=== PATIENT | female | born 1950 ===

== ENCOUNTER 2018-06-06 18:29 | Inpatient (IN) | payer MEDICARE ==
[2018-06-06] MEDS ORDERED: Sodium Chloride 0.9% 1,000 ML IV STA (20:03)
[2018-06-06 21:18] LABS: BASO % 0.3 % (0.0-2.0); EOS % 0.1 % (0.0-4.0); LYMPH # 1.9 K/uL (1.0-4.3); LYMPH % 13.2 % (20.0-40.0); MEAN CELL VOLUME 87.2 fl (81.0-99.0); MEAN CORPUSCULAR HEMOGLOBIN 28.6 pg (27.0-31.0); MEAN CORPUSCULAR HGB CONC 32.8 g/dL (33.0-37.0); MEAN PLATELET VOLUME 7.9 fl (7.2-11.7); MONO # 0.7 K/uL (0.0-0.8); MONO % 5.2 % (0.0-10.0); NEUT # 11.5 K/uL (1.8-7.0); NEUT % 81.2 % (50.0-75.0); NRBC % 0.1 % (0.0-0.0); RBC 3.85 Mil/uL (3.80-5.20); RED CELL DISTRIBUTION WIDTH 13.5 % (11.5-14.5); WHITE BLOOD COUNT 14.1 K/uL (4.8-10.8)
[2018-06-06 21:25] LABS: ALB/GLOB RATIO 1.4 (1.0-2.1); ALT/SGPT 24 U/L (9-52); AST/SGOT 146 U/L (14-36); BLOOD UREA NITROGEN 29 mg/dl (7-17); CALCIUM 10.1 mg/dL (8.4-10.2); GFR NON-AFRICAN AMERICAN > 60
[2018-06-06 21:26] LABS: SQUAMOUS EPITHIAL 4 /hpf (0-5); URINE BILIRUBIN NEGATIVE (NEGATIVE); URINE BLOOD NEGATIVE (NEGATIVE); URINE CLARITY SLIGHTY-CLOUDY (Clear); URINE COLOR YELLOW (YELLOW); URINE GLUCOSE (UA) NEG (NEGATIVE); URINE LEUKOCYTE ESTERASE SMALL Leu/uL (Negative); URINE PROTEIN 100 mg/dL (NEGATIVE); URINE UROBILINOGEN 0.2-1.0 mg/dL (0.2-1.0)
--- NOTE | 2018-06-06 21:36 | ED PDOC ---
HPI: Trauma/Fall - HPI Time Seen by Provider: 06/06/18 19:40 Chief Complaint (Nursing): Weakness/Neurological Deficit Chief Complaint (Provider): Weakness/Neurological Deficit History Per: Patient History/Exam Limitations: no limitations Onset/Duration Of Symptoms: Days (x 1) Injury Occurred (Timing): Today @ (03:00) Additional Complaint(s): 68 year old female with a history of HTN and diabetes presents to the ED for evaluation of weakness throughout the day and 2 episodes of vomiting. Patient reports she awoke at 03:00 this morning and fell due to weakness. She denies losing consciousness or hitting her head. Patient states that she is unable to tolerate any food or liquid. Denies fever and recent illness. PMD: Dr. Anup [place] Past Medical History Reviewed: Historical Data, Nursing Documentation, Vital Signs Vital Signs: Last Vital Signs Temp 97.9 F 06/06/18 18:48 Pulse 63 06/06/18 18:48 Resp 16 06/06/18 18:48 BP 114/42 L 06/06/18 18:48 Pulse Ox 100 06/06/18 18:48 - Medical History PMH: Diabetes, HTN - Surgical History Surgical History: No Surg Hx - Family History Family History: States: Unknown Family Hx - Immunization History Hx Tetanus Toxoid Vaccination: No Hx Influenza Vaccination: No Hx Pneumococcal Vaccination: No - Home Medications Home Medications: Ambulatory Orders Medication Instructions Recorded Carvedilol [Coreg] 6.25 mg PO BID 03/25/18 Glimepiride [amaRYL] 2 mg PO DAILY 03/25/18 Losartan/Hydrochlorothiazide 1 each PO DAILY 03/25/18 [Losartan-Hctz 100-25 mg Tab] MetFORMIN [glucOPHAGE] 1,000 mg PO BID 03/25/18 Pravastatin Sodium [Pravachol] 20 mg PO DAILY 03/25/18 amLODIPine [Norvasc] 5 mg PO DAILY 03/25/18 - Allergies Allergies/Adverse Reactions: Allergies Allergy/AdvReac Type Severity Reaction Status Date / Time No Known Allergies Allergy Verified 06/06/18 18:48 Review of Systems ROS Statement: Except As Marked, All Systems Reviewed And Found Negative Constitutional: Positive for: Weakness. Negative for: Fever, Chills Gastrointestinal: Positive for: Vomiting (2 episodes) Physical Exam - Reviewed Nursing Documentation Reviewed: Yes Vital Signs Reviewed: Yes - Physical Exam Appears: Positive for: No Acute Distress (appears lethargic) Head Exam: Positive for: ATRAUMATIC, NORMAL INSPECTION, NORMOCEPHALIC Skin: Positive for: Normal Color, Warm, Dry Eye Exam: Positive for: EOMI, Normal appearance, PERRL Neck: Positive for: Normal, Painless ROM, Supple Cardiovascular/Chest: Positive for: Regular Rate, Rhythm. Negative for: Murmur Respiratory: Positive for: Normal Breath Sounds. Negative for: Respiratory Distress Gastrointestinal/Abdominal: Positive for: Normal Exam, Soft. Negative for: Tenderness Back: Positive for: Normal Inspection. Negative for: L CVA Tenderness, R CVA Tenderness Extremity: Positive for: Normal ROM. Negative for: Deformity Neurological/Psych: Positive for: Awake, Alert, Normal Tone - Laboratory Results Result Diagrams: 06/07/18 03:50 06/07/18 03:50 Lab Results: Total Bilirubin 0.7 mg/dl (0.2-1.3) 06/06/18 21:02 AST 146 U/L (14-36) H D 06/06/18 21:02 ALT 24 U/L (9-52) 06/06/18 21:02 Alkaline Phosphatase 48 U/L (38-126) 06/06/18 21:02 Total Protein 6.9 G/DL (6.3-8.2) 06/06/18 21:02 Albumin 4.0 g/dL (3.5-5.0) 06/06/18 21:02 Globulin 2.9 gm/dL (2.2-3.9) 06/06/18 21:02 Albumin/Globulin Ratio 1.4 (1.0-2.1) 06/06/18 21:02 - ECG O2 Sat by Pulse Oximetry: 100 (RA) Pulse Ox Interpretation: Normal - Critical Care Total Time (In Min): 60 Medical Decision Making Medical Decision Makin:03 MDM: workup for generalized weakness Labs, CXR, IV fluids, CTs Reassess 21:50 Patient has a troponin of 14, EKG is showing small ST elevations at II, II and AVF. Code Heart activated. Discussion with patient and daughter: patient continues to deny chest pain and is still complaining of weakness. 21:[address] Celeste. Based on onset of symptoms at 3 am which is 19 hours ago, patient is out of window for catheterization. She will be admitted to ICU and started on IV heparin, aspirin and Plavix Scribe Attestation: Documented by Ashly Holcomb, acting as a scribe for Denita Blankenship MD. Provider Scribe Attestation: All medical record entries made by the Scribe were at my direction and personally dictated by me. I have reviewed the chart and agree that the record accurately reflects my personal performance of the history, physical exam, medical decision making, and the department course for this patient. I have also personally directed, reviewed, and agree with the discharge instructions and disposition. Disposition - Clinical Impression Clinical Impression: Acute weakness, STEMI (ST elevation myocardial infarction) - Disposition Disposition Time: 21:56 Condition: CRITICAL
[2018-06-06 21:44] LABS: VENOUS BLOOD GAS BASE EXCESS 5.2 mmol/L (0.0-2.0); VENOUS BLOOD GAS PCO2 43 mmHg (40-60); VENOUS BLOOD GAS PO2 29 mm/Hg (30-55); VENOUS BLOOD PH 7.45 (7.32-7.43)
[2018-06-06 22:04] VITALS: BMI 23.6
[2018-06-06] MEDS ORDERED: Heparin 25,000units in D5W 25,000 UNITS/250 ML BAG IV SCH (22:15)
[2018-06-06] MEDS ORDERED: Heparin 25,000units in D5W 25,000 UNITS/250 ML BAG IV ONE (22:22)
[2018-06-06 23:28] LABS: INR 1.1; PROTHROMBIN TIME 12.1 Seconds (9.8-13.1)
[2018-06-06 23:30] LABS: PARTIAL THROMBOPLASTIN TIME 32.1 Seconds (25.6-37.1)
--- NOTE | 2018-06-06 23:44 | CP.PCM.CON ---
History of Present Illness - History of Present Illness History of Present Illness: Reason for consult: admission to ICU HPI: 68 year old female PMH HTN, DM, HLD presents to ED for 16 hour history of moderate to severe generalized weakness, associated with disorientation. Patient states that around 3 am she woke to go to the bathroom and sustained a fall. She then had 2 episodes of NBNB emesis and malaise. Patient arrived to the ED, and denied any chest pain, dyspnea, diaphoresis. Afebrile, HR 63 BP 114/42, rr 16 100% on room air. Troponin 14.9, EKG with mild ST segment elevations in inferior leads, and CODE HEART was initiated. Case discussed with Interventional Cardiology, and patient was out of window for emergent cath. She will be admitted to ICU on Heparin gtt, asa, plavix, coreg, statin, PRN nitro, and Dr. Celeste Cardiology consult. She is currently chest pain free, HD stable and in no acute distress. ROS: per HPI all other systems reviewed and negative Past Patient History - Past Social History Smoking Status: Never Smoked - CARDIAC Hx Hypertension: Yes - ENDOCRINE/METABOLIC Hx Diabetes Mellitus Type 2: Yes - PSYCHIATRIC Hx Substance Use: No - SURGICAL HISTORY Hx Surgeries: Yes Hx Angioplasty: Yes - ANESTHESIA Hx Anesthesia: Yes Hx Anesthesia Reactions: No Meds Allergies/Adverse Reactions: Allergies Allergy/AdvReac Type Severity Reaction Status Date / Time No Known Allergies Allergy Verified 06/06/18 18:48 - Medications Medications: Current Medications Heparin Sodium/Dextrose (Heparin 25,000 Units/250ml In D5w) 25,000 units in 250 mls @ 7 mls/hr IV .Q24H REPLACED BY [facility]; Protocol Last Admin: 06/06/18 22:46 Dose: 7 mls/hr Physical Exam - Constitutional Appears: Non-toxic, No Acute Distress - Head Exam Head Exam: ATRAUMATIC, NORMOCEPHALIC - Eye Exam Eye Exam: EOMI, Normal appearance, PERRL Pupil Exam: NORMAL ACCOMODATION - ENT Exam ENT Exam: Mucous Membranes Moist, Normal Exam - Respiratory Exam Respiratory Exam: Clear to Auscultation Bilateral, NORMAL BREATHING PATTERN. absent: Wheezes - Cardiovascular Exam Cardiovascular Exam: RRR, +S1, +S2 - GI/Abdominal Exam GI & Abdominal Exam: Normal Bowel Sounds, Soft. absent: Organomegaly, Tenderness - Extremities Exam Extremities exam: Positive for: normal capillary refill, pedal pulses present - Back Exam Back exam: absent: CVA tenderness (L), CVA tenderness (R) - Neurological Exam Neurological exam: Alert, Reflexes Normal - Psychiatric Exam Psychiatric exam: Normal Affect, Normal Mood - Skin Skin Exam: Dry, Warm Results - Vital Signs Recent Vital Signs: Last Vital Signs Temp 98.3 F 06/06/18 21:59 Pulse 58 L 06/06/18 21:59 Resp 17 06/06/18 21:59 BP 128/63 06/06/18 21:59 Pulse Ox 100 06/06/18 22:13 - Labs Result Diagrams: 06/06/18 21:02 06/06/18 21:02 Labs: Laboratory Results - last 24 hr 06/06/18 06/06/18 06/06/18 19:04 21:02 21:02 WBC 14.1 H RBC 3.85 Hgb 11.0 L Hct 33.6 L MCV 87.2 MCH 28.6 MCHC 32.8 L RDW 13.5 Plt Count 235 MPV 7.9 Neut % (Auto) 81.2 H Lymph % (Auto) 13.2 L [place] % (Auto) 5.2 Eos % (Auto) 0.1 Baso % (Auto) 0.3 Neut # (Auto) 11.5 H Lymph # (Auto) 1.9 [place] # (Auto) 0.7 Eos # (Auto) 0.0 Baso # (Auto) 0.0 PT INR APTT pO2 VBG pH VBG pCO2 VBG HCO3 VBG Total CO2 VBG O2 Sat (Calc) VBG Base Excess VBG Potassium Glucose Lactate FiO2 Crit Value Called To Crit Value Called By Crit Value Read Back Blood Gas Notified Time Sodium 141 Potassium 3.9 Chloride 103 Carbon Dioxide 27 Anion Gap 15 BUN 29 H Creatinine 0.9 Est GFR ( Amer) > 60 Est GFR (Non-Af Amer) > 60 POC Glucose (mg/dL) 134 H Random Glucose 108 H Calcium 10.1 Total Bilirubin 0.7 AST 146 H D ALT 24 Alkaline Phosphatase 48 Troponin I 14.9000 H* Total Protein 6.9 Albumin 4.0 Globulin 2.9 Albumin/Globulin Ratio 1.4 Venous Blood Potassium Urine Color Urine Clarity Urine pH Ur Specific [place] Urine Protein Urine Glucose (UA) Urine Ketones Urine Blood Urine Nitrate Urine Bilirubin Urine Urobilinogen Ur Leukocyte Esterase Urine RBC (Auto) Urine Microscopic WBC Ur Squamous Epith Cells 06/06/18 06/06/18 06/06/18 21:13 21:35 21:50 WBC RBC Hgb Hct MCV MCH MCHC RDW Plt Count MPV Neut % (Auto) Lymph % (Auto) [place] % (Auto) Eos % (Auto) Baso % (Auto) Neut # (Auto) Lymph # (Auto) [place] # (Auto) Eos # (Auto) Baso # (Auto) PT 12.1 INR 1.1 APTT 32.1 pO2 29 L VBG pH 7.45 H VBG pCO2 43 VBG HCO3 27.9 VBG Total CO2 31.2 H VBG O2 Sat (Calc) 66.9 H VBG Base Excess 5.2 H VBG Potassium 3.8 Glucose 109 H Lactate 4.6 H* FiO2 21.0 Crit Value Called To Prachi barr Crit Value Called By 23 Crit Value Read Back Y Blood Gas Notified Time 2143 Sodium 141.0 Potassium Chloride 106.0 Carbon Dioxide Anion Gap BUN Creatinine Est GFR ( Amer) Est GFR (Non-Af Amer) POC Glucose (mg/dL) Random Glucose Calcium Total Bilirubin AST ALT Alkaline Phosphatase Troponin I Total Protein Albumin Globulin Albumin/Globulin Ratio Venous Blood Potassium 3.8 Urine Color Yellow Urine Clarity Slighty-cloudy Urine pH 7.0 Ur Specific [place] 1.023 Urine Protein 100 Urine Glucose (UA) Neg Urine Ketones Negative Urine Blood Negative Urine Nitrate Negative Urine Bilirubin Negative Urine Urobilinogen 0.2-1.0 Ur Leukocyte Esterase Small Urine RBC (Auto) 4 H Urine Microscopic WBC 10 H Ur Squamous Epith Cells 4 Assessment & Plan - Assessment and Plan (Free Text) Plan: 68 year old female PMH HTN, DM, HLD presents to ED for 16 hour history of moderate to severe generalized weakness, associated with disorientation. Patient states that around 3 am she woke to go to the bathroom and sustained a fall. She then had 2 episodes of NBNB emesis and malaise. Patient arrived to the ED, and denied any chest pain, dyspnea, diaphoresis. Afebrile, HR 63 BP 114/42, rr 16 100% on room air. Troponin 14.9, EKG with mild ST segment elevations in inferior leads, and CODE HEART was initiated. LA 4.6 2/2 VA.Case discussed with Interventional Cardiology, patient was out of window for emergent cath. She will be admitted to ICU on Heparin gtt, asa, plavix, coreg, statin, PRN nitro, and Dr. Celeste Cardiology consult. She is currently chest pain free, HD stable and in no acute distress. STEMI - trending enzymes, EKG in AM - repeat labs - echo ordered - currently chest pain free - heparin gtt, ASA, plavix, Coreg, Statin, PRN nitro - Dr. Celeste Interventional Cardiology - NPO for now DM - cont Glipizide and ISS HTN - cont Amlodipine, Losartan. Coreg with parameters given low 100s BP HLD - cont Pravastatin DVT ppx patient on heparin gtt
[2018-06-07 04:13] LABS: HEMOGLOBIN 10.5 g/dL (12.0-16.0); MEAN CORPUSCULAR HGB CONC 34.1 g/dL (33.0-37.0); RBC 3.62 Mil/uL (3.80-5.20); RED CELL DISTRIBUTION WIDTH 13.1 % (11.5-14.5); WHITE BLOOD COUNT 13.4 K/uL (4.8-10.8)
[2018-06-07 04:34] LABS: BLOOD UREA NITROGEN 29 mg/dl (7-17); CALCIUM 9.7 mg/dL (8.4-10.2); GFR NON-AFRICAN AMERICAN > 60; HDL CHOLESTEROL 41 MG/DL (30-70)
[2018-06-07 04:46] LABS: LDL CHOLESTEROL 75 mg/dL (0-129)
[2018-06-07] MEDS ORDERED: GlipiZIDE 5 mg SR Tab PO SCH (07:30)
[2018-06-07] MEDS ORDERED: Potassium Chloride 20 mEq ER Tab PO ONE (08:34)
--- NOTE | 2018-06-07 08:50 | CT ---
Date of service: 06/06/2018 PROCEDURE: CT HEAD WITHOUT CONTRAST. HISTORY: head trauma COMPARISON: None available. TECHNIQUE: Axial computed tomography images were obtained through the head/brain without intravenous contrast. Radiation dose: Total exam DLP = 774.25 mGy-cm. This CT exam was performed using one or more of the following dose reduction techniques: Automated exposure control, adjustment of the mA and/or kV according to patient size, and/or use of iterative reconstruction technique. FINDINGS: HEMORRHAGE: No intracranial hemorrhage. BRAIN: There are mild chronic microangiopathic changes. There are chronic lacunar infarctions in bilateral caudate head, internal capsules and left thalamus.. There is no mass, mass effect or abnormal extra-axial fluid collection. There is no territorial infarction. The midline sagittal structures are normal.There are coarse atherosclerotic calcifications in the cavernous carotid arteries. VENTRICLES: There is mild age-related global parenchymal volume loss and proportionate enlargement of the ventricles and cortical sulci. CALVARIUM: There is no calvarial fracture or extracranial soft tissue swelling. PARANASAL SINUSES: Predominantly clear. MASTOID AIR CELLS: Predominantly clear. OTHER FINDINGS: None. IMPRESSION: No acute intracranial abnormality. A preliminary report was provided by [employer].
[2018-06-07] MEDS ORDERED: Pravastatin Sodium 20 MG TAB PO SCH (09:00)
--- NOTE | 2018-06-07 09:03 | CARD ---
APPROVED REPORT Date of service: 06/06/2018 EKG Measurement Heart [id number] <Conclusion> Sinus bradycardia Left axis deviation Inferior infarct, possibly acute ACUTE PA / STEMI Consider right ventricular involvement in acute inferior infarct Abnormal ECG
--- NOTE | 2018-06-07 09:15 | CARD ---
APPROVED REPORT Date of service: 06/07/2018 EKG Measurement Heart [id number] <Conclusion> Sinus bradycardia Left axis deviation Inferior infarct, possibly acute ACUTE MT / STEMI Consider right ventricular involvement in acute inferior infarct Abnormal ECG
[2018-06-07] MEDS: Insulin Lispro (humaLOG) 100 Units/ml Inj SC SCH ×4 (10:04→22:26)
--- NOTE | 2018-06-07 10:34 | RAD ---
Date of service: 06/06/2018 HISTORY: possible admission COMPARISON: No prior. FINDINGS: LUNGS: No active pulmonary disease. PLEURA: No significant pleural effusion identified, no pneumothorax apparent. CARDIOVASCULAR: Atherosclerotic calcifications identified primarily aortic arch. No radiographic findings to suggest acute or significant cardiovascular disease. OSSEOUS STRUCTURES: No significant abnormalities. VISUALIZED UPPER ABDOMEN: Normal. OTHER FINDINGS: None. IMPRESSION: No active disease.
--- NOTE | 2018-06-07 10:35 | CP.PCM.CON ---
History of Present Illness - History of Present Illness History of Present Illness: Shahid Bell, PGY-1, Cardiology Consult Note for Dr. Celeste 68 year old female with past medical history of hypertension, hyperlipidemia, diabetes mellitus type II presents status post fall. Patient fell on the the way to the bathroom at home and hit her head. Patient denies loss of consciousness. Patient reports prior to the fall, she had not had much appetite for 2 days due to severe nausea. Patient had 2 episodes of NBNB vomiting day prior to fall and 1 episode in the emergency department. Patient's nausea has resolved at this time. Patient denies any chest pain, shortness of breath, left arm pain, jaw pain, diaphoresis at this time. 12-point ROS was unremarkable except for what was mentioned in HPI. PMD: hypertension, hyperlipidemia, diabetes mellitus type II PSH: denies Allergies: NKDA FMHx: noncontributary SHx: smoked 1 PPD for "years", denies alcohol or recreational drug use Patient had stress test 15 years ago which she reports was normal. Patient had catheterization in 1999 with no stents placed as per patient. Review of Systems - Review of Systems Review of Systems: except as mentioned in HPI Past Patient History - Past Medical History & Family History Past Medical History?: Yes - Past Social History Smoking Status: Never Smoked - CARDIAC Hx Hypertension: Yes - PULMONARY Hx Respiratory Disorders: No - NEUROLOGICAL Hx Neurological Disorder: No - HEENT Hx HEENT Problems: Yes - RENAL Hx Chronic Kidney Disease: No - ENDOCRINE/METABOLIC Hx Diabetes Mellitus Type 2: Yes - HEMATOLOGICAL/ONCOLOGICAL Hx Blood Disorders: No - INTEGUMENTARY Hx Dermatological Problems: No - MUSCULOSKELETAL/RHEUMATOLOGICAL Hx Musculoskeletal Disorders: Yes - GASTROINTESTINAL Hx Gastrointestinal Disorders: No - GENITOURINARY/GYNECOLOGICAL Hx Genitourinary Disorders: No - PSYCHIATRIC Hx Psychophysiologic Disorder: No - SURGICAL HISTORY Hx Surgeries: Yes Hx Angioplasty: Yes - ANESTHESIA Hx Anesthesia: Yes Hx Anesthesia Reactions: No Meds Allergies/Adverse Reactions: Allergies Allergy/AdvReac Type Severity Reaction Status Date / Time No Known Allergies Allergy Verified 06/06/18 18:48 - Medications Medications: Current Medications Amlodipine Besylate (Norvasc) 5 mg PO DAILY [facility] Last Admin: 06/07/18 10:05 Dose: 5 mg Aspirin (Aspirin Chewable) 81 mg PO DAILY [facility] Last Admin: 06/07/18 09:55 Dose: 81 mg Clopidogrel Bisulfate (Plavix) 75 mg PO DAILY [facility] Last Admin: 06/07/18 10:05 Dose: 75 mg Glipizide (Glucotrol Xl) 5 mg PO ACB [facility] Last Admin: 06/07/18 10:18 Dose: 5 mg Heparin Sodium/Dextrose (Heparin 25,000 Units/250ml In D5w) 25,000 units in 250 mls @ 7 mls/hr IV .Q24H [facility]; Protocol Last Titration: 06/07/18 06:15 Dose: 5 mls/hr Insulin Human Lispro (Humalog) 0 units SC ACHS [facility]; Protocol Last Admin: 06/07/18 10:04 Dose: Not Given Metoprolol Succinate (Toprol Xl) 25 mg PO DAILY [facility] Nitroglycerin (Nitrostat Sl Tab) 0.4 mg SL Q5M PRN PRN Reason: Other Ondansetron HCl (Zofran Inj) 4 mg IVP Q4 PRN PRN Reason: Nausea/Vomiting Pravastatin Sodium (Pravachol) 20 mg PO DAILY [facility] Last Admin: 06/07/18 10:05 Dose: 20 mg Physical Exam - Constitutional Appears: Well, Non-toxic, No Acute Distress - Head Exam Head Exam: ATRAUMATIC, NORMAL INSPECTION, NORMOCEPHALIC - Eye Exam Eye Exam: EOMI, PERRL - ENT Exam ENT Exam: Mucous Membranes Moist - Respiratory Exam Respiratory Exam: Clear to Auscultation Bilateral, NORMAL BREATHING PATTERN - Cardiovascular Exam Cardiovascular Exam: REGULAR RHYTHM, RRR, +S1, +S2 - GI/Abdominal Exam GI & Abdominal Exam: Normal Bowel Sounds, Soft. absent: Tenderness - Extremities Exam Extremities exam: Positive for: full ROM, normal capillary refill. Negative for: pedal edema - Neurological Exam Neurological exam: Alert, CN II-XII Intact, Oriented x3 - Skin Skin Exam: Dry, Intact, Normal Color Results - Vital Signs Recent Vital Signs: Last Vital Signs Temp 99.9 F H 06/07/18 08:00 Pulse 55 L 06/07/18 10:05 Resp 18 06/07/18 08:00 BP 122/57 L 06/07/18 10:05 Pulse Ox 95 06/07/18 08:00 - Labs Result Diagrams: 06/07/18 03:50 06/07/18 03:50 Labs: Laboratory Results - last 24 hr 06/06/18 06/06/18 06/06/18 19:04 21:02 21:02 WBC 14.1 H RBC 3.85 Hgb 11.0 L Hct 33.6 L MCV 87.2 MCH 28.6 MCHC 32.8 L RDW 13.5 Plt Count 235 MPV 7.9 Neut % (Auto) 81.2 H Lymph % (Auto) 13.2 L [place] % (Auto) 5.2 Eos % (Auto) 0.1 Baso % (Auto) 0.3 Neut # (Auto) 11.5 H Lymph # (Auto) 1.9 [place] # (Auto) 0.7 Eos # (Auto) 0.0 Baso # (Auto) 0.0 PT INR APTT pO2 VBG pH VBG pCO2 VBG HCO3 VBG Total CO2 VBG O2 Sat (Calc) VBG Base Excess VBG Potassium Glucose Lactate FiO2 Crit Value Called To Crit Value Called By Crit Value Read Back Blood Gas Notified Time Sodium 141 Potassium 3.9 Chloride 103 Carbon Dioxide 27 Anion Gap 15 BUN 29 H Creatinine 0.9 Est GFR ( Amer) > 60 Est GFR (Non-Af Amer) > 60 POC Glucose (mg/dL) 134 H Random Glucose 108 H Calcium 10.1 Phosphorus Magnesium Total Bilirubin 0.7 AST 146 H D ALT 24 Alkaline Phosphatase 48 Troponin I 14.9000 H* Total Protein 6.9 Albumin 4.0 Globulin 2.9 Albumin/Globulin Ratio 1.4 Triglycerides Cholesterol LDL Cholesterol Direct HDL Cholesterol Free T4 TSH 3rd Generation Venous Blood Potassium Urine Color Urine Clarity Urine pH Ur Specific [place] Urine Protein Urine Glucose (UA) Urine Ketones Urine Blood Urine Nitrate Urine Bilirubin Urine Urobilinogen Ur Leukocyte Esterase Urine RBC (Auto) Urine Microscopic WBC Ur Squamous Epith Cells 06/06/18 06/06/18 06/06/18 21:13 21:35 21:50 WBC RBC Hgb Hct MCV MCH MCHC RDW Plt Count MPV Neut % (Auto) Lymph % (Auto) [place] % (Auto) Eos % (Auto) Baso % (Auto) Neut # (Auto) Lymph # (Auto) [place] # (Auto) Eos # (Auto) Baso # (Auto) PT 12.1 INR 1.1 APTT 32.1 pO2 29 L VBG pH 7.45 H VBG pCO2 43 VBG HCO3 27.9 VBG Total CO2 31.2 H VBG O2 Sat (Calc) 66.9 H VBG Base Excess 5.2 H VBG Potassium 3.8 Glucose 109 H Lactate 4.6 H* FiO2 21.0 Crit Value Called To Prachi barr Crit Value Called By 23 Crit Value Read Back Y Blood Gas Notified Time 2142 Sodium 141.0 Potassium Chloride 106.0 Carbon Dioxide Anion Gap BUN Creatinine Est GFR ( Amer) Est GFR (Non-Af Amer) POC Glucose (mg/dL) Random Glucose Calcium Phosphorus Magnesium Total Bilirubin AST ALT Alkaline Phosphatase Troponin I Total Protein Albumin Globulin Albumin/Globulin Ratio Triglycerides Cholesterol LDL Cholesterol Direct HDL Cholesterol Free T4 TSH 3rd Generation Venous Blood Potassium 3.8 Urine Color Yellow Urine Clarity Slighty-cloudy Urine pH 7.0 Ur Specific [place] 1.023 Urine Protein 100 Urine Glucose (UA) Neg Urine Ketones Negative Urine Blood Negative Urine Nitrate Negative Urine Bilirubin Negative Urine Urobilinogen 0.2-1.0 Ur Leukocyte Esterase Small Urine RBC (Auto) 4 H Urine Microscopic WBC 10 H Ur Squamous Epith Cells 4 06/06/18 06/07/18 06/07/18 23:32 03:50 03:50 WBC 13.4 H RBC 3.62 L Hgb 10.5 L Hct 30.8 L MCV 85.0 D MCH 29.0 MCHC 34.1 RDW 13.1 Plt Count 214 MPV Neut % (Auto) Lymph % (Auto) [place] % (Auto) Eos % (Auto) Baso % (Auto) Neut # (Auto) Lymph # (Auto) [place] # (Auto) Eos # (Auto) Baso # (Auto) PT INR APTT pO2 VBG pH VBG pCO2 VBG HCO3 VBG Total CO2 VBG O2 Sat (Calc) VBG Base Excess VBG Potassium Glucose Lactate FiO2 Crit Value Called To Crit Value Called By Crit Value Read Back Blood Gas Notified Time Sodium 142 Potassium 3.4 L Chloride 105 Carbon Dioxide 29 Anion Gap 11 BUN 29 H Creatinine 0.9 Est GFR ( Amer) > 60 Est GFR (Non-Af Amer) > 60 POC Glucose (mg/dL) 123 H Random Glucose 101 Calcium 9.7 Phosphorus 3.5 Magnesium 1.8 Total Bilirubin AST ALT Alkaline Phosphatase Troponin I 27.1000 H* Total Protein Albumin Globulin Albumin/Globulin Ratio Triglycerides 159 H Cholesterol 142 LDL Cholesterol Direct 75 HDL Cholesterol 41 Free T4 TSH 3rd Generation 1.00 Venous Blood Potassium Urine Color Urine Clarity Urine pH Ur Specific [place] Urine Protein Urine Glucose (UA) Urine Ketones Urine Blood Urine Nitrate Urine Bilirubin Urine Urobilinogen Ur Leukocyte Esterase Urine RBC (Auto) Urine Microscopic WBC Ur Squamous Epith Cells 06/07/18 06/07/18 06/07/18 03:50 05:23 06:10 WBC RBC Hgb Hct MCV MCH MCHC RDW Plt Count MPV Neut % (Auto) Lymph % (Auto) [place] % (Auto) Eos % (Auto) Baso % (Auto) Neut # (Auto) Lymph # (Auto) [place] # (Auto) Eos # (Auto) Baso # (Auto) PT INR APTT 102.4 H pO2 VBG pH VBG pCO2 VBG HCO3 VBG Total CO2 VBG O2 Sat (Calc) VBG Base Excess VBG Potassium Glucose Lactate FiO2 Crit Value Called To Crit Value Called By Crit Value Read Back Blood Gas Notified Time Sodium Potassium Chloride Carbon Dioxide Anion Gap BUN Creatinine Est GFR ( Amer) Est GFR (Non-Af Amer) POC Glucose (mg/dL) 116 H Random Glucose Calcium Phosphorus Magnesium Total Bilirubin AST ALT Alkaline Phosphatase Troponin I Total Protein Albumin Globulin Albumin/Globulin Ratio Triglycerides Cholesterol LDL Cholesterol Direct HDL Cholesterol Free T4 1.29 TSH 3rd Generation Venous Blood Potassium Urine Color Urine Clarity Urine pH Ur Specific [place] Urine Protein Urine Glucose (UA) Urine Ketones Urine Blood Urine Nitrate Urine Bilirubin Urine Urobilinogen Ur Leukocyte Esterase Urine RBC (Auto) Urine Microscopic WBC Ur Squamous Epith Cells Assessment & Plan - Assessment and Plan (Free Text) Assessment: Status post fall NSTEMI Hypertension Hyperlipidemia Diabetes Mellitus Plan: Status post fall STEMI Hypertension Hyperlipidemia Diabetes Mellitus EKG: ST elevations in III and aVF. ST depressions in I, aVL, and V6 Troponinx2: 27, 14.[address] and Cervical Spine X ray showed no acute fractures Patient is scheduled for cardiac catheterization in [facility] [place] with Dr. Sheehan Will continue heparin drip at this time Patient is NPO past midnight Coreg switched to toprol Medications: aspirin plavix nitroglycerin heparin drip amlodipine toprol - Date & Time Date: 06/07/18 Time: 10:36
--- NOTE | 2018-06-07 10:35 | RAD ---
Date of service: 06/06/2018 PROCEDURE: Cervical Spine Radiographs. HISTORY: Pain. COMPARISON: None available. FINDINGS: BONES: Neutral position identified without lordosis or kyphosis.. No fracture. Dens Intact. DISC SPACES: Cervical spondylotic changes C5-6 and C6-7, mild. Foraminal narrowing at these levels identified bilaterally SOFT TISSUES: Normal. No prevertebral soft tissue swelling. OTHER FINDINGS: None. IMPRESSION: Mild cervical spondylotic changes. No acute findings.
--- NOTE | 2018-06-07 15:40 | CP.PCM.HP ---
History of Present Illness - History of Present Illness History of Present Illness: CC: Fall/Trauma. Weakness. 68 y/o F, PMHx: HTN, Diabetes, came to ER [facility] on on 06/06/18 to be evaluated for Fall at home while going to bathroom hitting her head about 3:30 AM DOA, with no LOC, associated to severe generalized weakness, with no relief, associated to headache, aching type, constant, moderate intensity of 5:10, with nausea and vomiting x 2, NBNB with no relief. Worsening symptoms: Unable to tolerate any food or liquid, malaise, Lack of appetite from 2 days [employer] 2nd to nausea, disorientation. Aggravated factor: Walking/standing Pt denied: Fever, chills, diarrhea, urinary symptoms, CP, syncope, numbness, SOB, cough, sick contact, recent travel out of [facility]. CXR: No active disease. Head CT: No acute intracranial abnormality. Cervical Spine X-Ray: Mild cervical spondylotic changes. EKG: Sinus tachycardia. Acute ND/ STEMI In the ER: HR 63, BP 114/42, rr 16 100% on room air, Toponim 14.9 (48.2 today). Pt was admitted to ICU on Heparin gtt, ASA, Plavix, Ntg, Statin, Coreg. Present on Admission - Present on Admission Any Indicators Present on Admission: No Review of Systems - Constitutional Constitutional: Headache, Malaise, Weakness, Other (decreased appetite 2nd to nausea) - EENT Eyes: Requires Corrective Lenses, Other (Cataracts) Ears: Other (negative) Nose/Mouth/Throat: Other (negative) - Cardiovascular Cardiovascular: Slow Heart Rate - Respiratory Respiratory: Other (negative) - Gastrointestinal Gastrointestinal: Nausea, Vomiting. absent: Abdominal Pain - Genitourinary Genitourinary: Other (negative) - Musculoskeletal Musculoskeletal: Other (negative) - Integumentary Integumentary: Other (negative) - Neurological Neurological: Headaches, Weakness (generalized) - Psychiatric Psychiatric: Other (negative) - Endocrine Endocrine: Other (negative) - Hematologic/Lymphatic Hematologic: Other (negative) Past Patient History - Past Medical History & Family History Past Medical History?: Yes Pertinent Family History: Unknown - Past Social History Smoking Status: Former Smoker (1PPD x years) Alcohol: None Drugs: Denies - CARDIAC Hx Cardiac Disorders: Yes Hx Hypercholesterolemia: Yes Hx Hypertension: Yes Other/Comment: Cardiac Cath 1999 - PULMONARY Hx Respiratory Disorders: No - NEUROLOGICAL Hx Neurological Disorder: No - HEENT Hx HEENT Problems: Yes Hx Cataracts: Yes - RENAL Hx Chronic Kidney Disease: No - ENDOCRINE/METABOLIC Hx Endocrine Disorders: Yes Hx Diabetes Mellitus Type 2: Yes - HEMATOLOGICAL/ONCOLOGICAL Hx Blood Disorders: No - INTEGUMENTARY Hx Dermatological Problems: No - MUSCULOSKELETAL/RHEUMATOLOGICAL Hx Musculoskeletal Disorders: Yes - GASTROINTESTINAL Hx Gastrointestinal Disorders: No - GENITOURINARY/GYNECOLOGICAL Hx Genitourinary Disorders: No - PSYCHIATRIC Hx Psychophysiologic Disorder: No - SURGICAL HISTORY Hx Surgeries: Yes Hx Angioplasty: Yes Other/Comment: Cardiac Cath 1999 - ANESTHESIA Hx Anesthesia: Yes Hx Anesthesia Reactions: No Meds Allergies/Adverse Reactions: Allergies Allergy/AdvReac Type Severity Reaction Status Date / Time No Known Allergies Allergy Verified 06/06/18 18:48 Physical Exam - Constitutional Appears: No Acute Distress - Head Exam Head Exam: NORMAL INSPECTION - Eye Exam Eye Exam: PERRL - ENT Exam ENT Exam: Normal Exam - Neck Exam Neck exam: Positive for: Normal Inspection - Respiratory Exam Respiratory Exam: NORMAL BREATHING PATTERN - Cardiovascular Exam Cardiovascular Exam: REGULAR RHYTHM - GI/Abdominal Exam GI & Abdominal Exam: Normal Bowel Sounds, Soft - Extremities Exam Extremities exam: Positive for: normal inspection - Back Exam Back exam: NORMAL INSPECTION - Neurological Exam Neurological exam: Alert, Oriented x3 Additional comments: Generalized weakness. - Psychiatric Exam Psychiatric exam: Normal Mood - Skin Skin Exam: Normal Color, Warm Results - Vital Signs Recent Vital Signs: Last Vital Signs Temp 98.2 F 06/07/18 12:00 Pulse 56 L 06/07/18 12:00 Resp 18 06/07/18 12:00 BP 119/54 L 06/07/18 12:00 Pulse Ox 96 06/07/18 12:00 reviewed Gayle - Labs Result Diagrams: 06/08/18 05:00 06/08/18 05:00 Labs: Laboratory Results - last 24 hr 06/06/18 06/06/18 06/06/18 19:04 21:02 21:02 WBC 14.1 H RBC 3.85 Hgb 11.0 L Hct 33.6 L MCV 87.2 MCH 28.6 MCHC 32.8 L RDW 13.5 Plt Count 235 MPV 7.9 Neut % (Auto) 81.2 H Lymph % (Auto) 13.2 L [place] % (Auto) 5.2 Eos % (Auto) 0.1 Baso % (Auto) 0.3 Neut # (Auto) 11.5 H Lymph # (Auto) 1.9 [place] # (Auto) 0.7 Eos # (Auto) 0.0 Baso # (Auto) 0.0 PT INR APTT pO2 VBG pH VBG pCO2 VBG HCO3 VBG Total CO2 VBG O2 Sat (Calc) VBG Base Excess VBG Potassium Glucose Lactate FiO2 Crit Value Called To Crit Value Called By Crit Value Read Back Blood Gas Notified Time Sodium 141 Potassium 3.9 Chloride 103 Carbon Dioxide 27 Anion Gap 15 BUN 29 H Creatinine 0.9 Est GFR ( Amer) > 60 Est GFR (Non-Af Amer) > 60 POC Glucose (mg/dL) 134 H Random Glucose 108 H Calcium 10.1 Phosphorus Magnesium Total Bilirubin 0.7 AST 146 H D ALT 24 Alkaline Phosphatase 48 Troponin I 14.9000 H* Total Protein 6.9 Albumin 4.0 Globulin 2.9 Albumin/Globulin Ratio 1.4 Triglycerides Cholesterol LDL Cholesterol Direct HDL Cholesterol Free T4 TSH 3rd Generation Venous Blood Potassium Urine Color Urine Clarity Urine pH Ur Specific [place] Urine Protein Urine Glucose (UA) Urine Ketones Urine Blood Urine Nitrate Urine Bilirubin Urine Urobilinogen Ur Leukocyte Esterase Urine RBC (Auto) Urine Microscopic WBC Ur Squamous Epith Cells 06/06/18 06/06/18 06/06/18 21:13 21:35 21:50 WBC RBC Hgb Hct MCV MCH MCHC RDW Plt Count MPV Neut % (Auto) Lymph % (Auto) [place] % (Auto) Eos % (Auto) Baso % (Auto) Neut # (Auto) Lymph # (Auto) [place] # (Auto) Eos # (Auto) Baso # (Auto) PT 12.1 INR 1.1 APTT 32.1 pO2 29 L VBG pH 7.45 H VBG pCO2 43 VBG HCO3 27.9 VBG Total CO2 31.2 H VBG O2 Sat (Calc) 66.9 H VBG Base Excess 5.2 H VBG Potassium 3.8 Glucose 109 H Lactate 4.6 H* FiO2 21.0 Crit Value Called To Prachi barr Crit Value Called By 23 Crit Value Read Back Y Blood Gas Notified Time 2143 Sodium 141.0 Potassium Chloride 106.0 Carbon Dioxide Anion Gap BUN Creatinine Est GFR ( Amer) Est GFR (Non-Af Amer) POC Glucose (mg/dL) Random Glucose Calcium Phosphorus Magnesium Total Bilirubin AST ALT Alkaline Phosphatase Troponin I Total Protein Albumin Globulin Albumin/Globulin Ratio Triglycerides Cholesterol LDL Cholesterol Direct HDL Cholesterol Free T4 TSH 3rd Generation Venous Blood Potassium 3.8 Urine Color Yellow Urine Clarity Slighty-cloudy Urine pH 7.0 Ur Specific [place] 1.023 Urine Protein 100 Urine Glucose (UA) Neg Urine Ketones Negative Urine Blood Negative Urine Nitrate Negative Urine Bilirubin Negative Urine Urobilinogen 0.2-1.0 Ur Leukocyte Esterase Small Urine RBC (Auto) 4 H Urine Microscopic WBC 10 H Ur Squamous Epith Cells 4 06/06/18 06/07/18 06/07/18 23:32 03:50 03:50 WBC 13.4 H RBC 3.62 L Hgb 10.5 L Hct 30.8 L MCV 85.0 D MCH 29.0 MCHC 34.1 RDW 13.1 Plt Count 214 MPV Neut % (Auto) Lymph % (Auto) [place] % (Auto) Eos % (Auto) Baso % (Auto) Neut # (Auto) Lymph # (Auto) [place] # (Auto) Eos # (Auto) Baso # (Auto) PT INR APTT pO2 VBG pH VBG pCO2 VBG HCO3 VBG Total CO2 VBG O2 Sat (Calc) VBG Base Excess VBG Potassium Glucose Lactate FiO2 Crit Value Called To Crit Value Called By Crit Value Read Back Blood Gas Notified Time Sodium 142 Potassium 3.4 L Chloride 105 Carbon Dioxide 29 Anion Gap 11 BUN 29 H Creatinine 0.9 Est GFR ( Amer) > 60 Est GFR (Non-Af Amer) > 60 POC Glucose (mg/dL) 123 H Random Glucose 101 Calcium 9.7 Phosphorus 3.5 Magnesium 1.8 Total Bilirubin AST ALT Alkaline Phosphatase Troponin I 27.1000 H* Total Protein Albumin Globulin Albumin/Globulin Ratio Triglycerides 159 H Cholesterol 142 LDL Cholesterol Direct 75 HDL Cholesterol 41 Free T4 TSH 3rd Generation 1.00 Venous Blood Potassium Urine Color Urine Clarity Urine pH Ur Specific [place] Urine Protein Urine Glucose (UA) Urine Ketones Urine Blood Urine Nitrate Urine Bilirubin Urine Urobilinogen Ur Leukocyte Esterase Urine RBC (Auto) Urine Microscopic WBC Ur Squamous Epith Cells 06/07/18 06/07/18 06/07/18 03:50 05:23 06:10 WBC RBC Hgb Hct MCV MCH MCHC RDW Plt Count MPV Neut % (Auto) Lymph % (Auto) [place] % (Auto) Eos % (Auto) Baso % (Auto) Neut # (Auto) Lymph # (Auto) [place] # (Auto) Eos # (Auto) Baso # (Auto) PT INR APTT 102.4 H pO2 VBG pH VBG pCO2 VBG HCO3 VBG Total CO2 VBG O2 Sat (Calc) VBG Base Excess VBG Potassium Glucose Lactate FiO2 Crit Value Called To Crit Value Called By Crit Value Read Back Blood Gas Notified Time Sodium Potassium Chloride Carbon Dioxide Anion Gap BUN Creatinine Est GFR ( Amer) Est GFR (Non-Af Amer) POC Glucose (mg/dL) 116 H Random Glucose Calcium Phosphorus Magnesium Total Bilirubin AST ALT Alkaline Phosphatase Troponin I Total Protein Albumin Globulin Albumin/Globulin Ratio Triglycerides Cholesterol LDL Cholesterol Direct HDL Cholesterol Free T4 1.29 TSH 3rd Generation Venous Blood Potassium Urine Color Urine Clarity Urine pH Ur Specific [place] Urine Protein Urine Glucose (UA) Urine Ketones Urine Blood Urine Nitrate Urine Bilirubin Urine Urobilinogen Ur Leukocyte Esterase Urine RBC (Auto) Urine Microscopic WBC Ur Squamous Epith Cells 06/07/18 06/07/18 12:40 12:40 WBC RBC Hgb Hct MCV MCH MCHC RDW Plt Count MPV Neut % (Auto) Lymph % (Auto) [place] % (Auto) Eos % (Auto) Baso % (Auto) Neut # (Auto) Lymph # (Auto) [place] # (Auto) Eos # (Auto) Baso # (Auto) PT INR APTT 55.0 H pO2 VBG pH VBG pCO2 VBG HCO3 VBG Total CO2 VBG O2 Sat (Calc) VBG Base Excess VBG Potassium Glucose Lactate FiO2 Crit Value Called To Crit Value Called By Crit Value Read Back Blood Gas Notified Time Sodium Potassium Chloride Carbon Dioxide Anion Gap BUN Creatinine Est GFR ( Amer) Est GFR (Non-Af Amer) POC Glucose (mg/dL) Random Glucose Calcium Phosphorus Magnesium Total Bilirubin AST ALT Alkaline Phosphatase Troponin I 48.2000 H* Total Protein Albumin Globulin Albumin/Globulin Ratio Triglycerides Cholesterol LDL Cholesterol Direct HDL Cholesterol Free T4 TSH 3rd Generation Venous Blood Potassium Urine Color Urine Clarity Urine pH Ur Specific [place] Urine Protein Urine Glucose (UA) Urine Ketones Urine Blood Urine Nitrate Urine Bilirubin Urine Urobilinogen Ur Leukocyte Esterase Urine RBC (Auto) Urine Microscopic WBC Ur Squamous Epith Cells reviewed J.P. - EKG Data EKG comments: reviewed J.P. - Imaging and Cardiology CT scan - head Status: Report reviewed by me (Gayle) Chest x-ray Status: Report reviewed by me (Gayle) Cervical Spine X-Ray Status: Report reviewed by me Assessment & Plan (1) STEMI (ST elevation myocardial infarction) Status: Acute Priority: High (2) Acute weakness Status: Acute Priority: High (3) Hyperlipidemia Status: Chronic Priority: Medium (4) DMII (diabetes mellitus, type 2) Status: Chronic Priority: Medium (5) Hypertension Status: Chronic Priority: Low - Assessment and Plan (Free Text) Plan: F/U Echo, MRSA Screen, PTT, continue heparin IV, NTG, Plavix, Pravastatin, Zofran prn and rest of Tx. Cardiology consult appreciated, for Cardiac Cath tomorrow - Date & Time Date: 06/07/18 Time: 12:05
--- NOTE | 2018-06-07 15:43 | CP.PCM.PN ---
Objective - Vital Signs/Intake and Output Vital Signs (last 24 hours): Temp Pulse Resp BP Pulse Ox 98.2 F 56 L 18 119/54 L 96 06/07/18 12:00 06/07/18 12:00 06/07/18 12:00 06/07/18 12:00 06/07/18 12:00 Intake and Output: 06/07/18 06/07/18 06:59 18:59 Intake Total 77 Balance 77 - Medications Medications: Current Medications Amlodipine Besylate (Norvasc) 5 mg PO DAILY [facility] Last Admin: 06/07/18 10:05 Dose: 5 mg Aspirin (Aspirin Chewable) 81 mg PO DAILY [facility] Last Admin: 06/07/18 09:55 Dose: 81 mg Clopidogrel Bisulfate (Plavix) 75 mg PO DAILY [facility] Last Admin: 06/07/18 10:05 Dose: 75 mg Glipizide (Glucotrol Xl) 5 mg PO ACB [facility] Last Admin: 06/07/18 10:18 Dose: 5 mg Heparin Sodium/Dextrose (Heparin 25,000 Units/250ml In D5w) 25,000 units in 250 mls @ 7 mls/hr IV .Q24H [facility]; Protocol Last Titration: 06/07/18 06:15 Dose: 5 mls/hr Insulin Human Lispro (Humalog) 0 units SC ACHS [facility]; Protocol Last Admin: 06/07/18 13:21 Dose: Not Given Metoprolol Succinate (Toprol Xl) 12.5 mg PO DAILY [facility] Nitroglycerin (Nitrostat Sl Tab) 0.4 mg SL Q5M PRN PRN Reason: Other Ondansetron HCl (Zofran Inj) 4 mg IVP Q4 PRN PRN Reason: Nausea/Vomiting Pravastatin Sodium (Pravachol) 20 mg PO DAILY [facility] Last Admin: 06/07/18 10:05 Dose: 20 mg - Labs Labs: 06/07/18 03:50 06/07/18 03:50 PT 12.1 Seconds (9.8-13.1) 06/06/18 21:50 INR 1.1 06/06/18 21:50 APTT 55.0 Seconds (25.6-37.1) H 06/07/18 12:40
--- NOTE | 2018-06-07 17:24 | CARD ---
APPROVED REPORT Date of service: 06/07/2018 EXAM: Two-dimensional and M-mode echocardiogram with Doppler and color Doppler. Other Information Quality : GoodRhythm : NSR INDICATION Non STEMI 2D DIMENSIONS IVSd1.56 (0.7-1.1cm)LVDd3.39 (3.9-5.9cm) LVOT Diameter1.87 (1.8-2.4cm)PWd1.04 (0.7-1.1cm) IVSs1.62 (0.8-1.2cm)LVDs2.22 (2.5-4.0cm) FS (%) 34.4 %PWs1.63 (0.8-1.2cm) M-Mode DIMENSIONS Left Atrium (MM)4.52 (2.5-4.0cm)IVSd1.10 (0.7-1.1cm) Aortic Root2.26 (2.2-3.7cm)LVDd5.13 (4.0-5.6cm) Aortic Cusp Exc.1.46 (1.5-2.0cm)PWd1.38 (0.7-1.1cm) IVSs2.12 cmFS (%) 45 % LVDs2.81 (2.0-3.8cm)PWs1.63 cm Aortic Valve AoV Peak Elsfqjyc688.9cm/sAoV VTI38.4cmAO Peak GR.12mmHg LVOT Peak Wfzqvado37.5cm/sLVOT VTI19.34cmAO Mean GR.7mmHg DANIEL (VMAX)0.02lw8BIW (VTI)0.92cm2 Mitral Valve MV E Wqxgnrgu097.0cm/sMV DECEL [id number] A Vtkcydnt46.1cm/s MV DZA72mcH/A ratio1.5MVA (PHT)4.69cm2 TDI Lateral E' Peak V7.33cm/sMedial E' Peak V6.60cm/sE/Lateral E'16.6 E/Medial E'18.5 LEFT VENTRICLE The left ventricle is normal size. There is mild concentric left ventricular hypertrophy. The left ventricular systolic function is normal. The estimated ejection fraction is 55-60% No regional wall motion abnormalities noted.. Transmitral Doppler flow pattern is Grade II-pseudonormal filling dynamics. No left ventricle thrombus noted on this study. There is no ventricular septal defect visualized. There is no left ventricular aneurysm. There is no mass noted in the left ventricle. RIGHT VENTRICLE The right ventricle is normal size. There is normal right ventricular wall thickness. The right ventricular systolic function is normal. ATRIA The left atrium is mildly dilated. The right atrium size is normal. The interatrial septum is intact with no evidence for an atrial septal defect. AORTIC VALVE The aortic valve is normal in structure. No aortic regurgitation is present. There is no aortic valvular stenosis. There is no aortic valvular vegetation. MITRAL VALVE The mitral valve is normal in structure. There is no evidence of mitral valve prolapse. There is no mitral valve stenosis. There is trace mitral valve regurgitation noted. TRICUSPID VALVE The tricuspid valve is normal in structure. There is trivial tricuspid valve regurgitation noted. There is no tricuspid valve prolapse or vegetation. There is no tricuspid valve stenosis. PULMONIC VALVE The pulmonary valve is normal in structure. There is no pulmonic valvular regurgitation. There is no pulmonic valvular stenosis. GREAT VESSELS The aortic root is normal in size. The ascending aorta is normal in size. The pulmonary artery is normal. The IVC is dilated in size and collapses <50% with inspiration. PERICARDIAL EFFUSION There is no pericardial effusion. There is no pleural effusion. <Conclusion> There is mild concentric left ventricular hypertrophy. The estimated ejection fraction is 55-60% Transmitral Doppler flow pattern is Grade II-pseudonormal filling dynamics. The left atrium is mildly dilated. There is trace mitral valve regurgitation noted. There is trivial tricuspid valve regurgitation noted. The IVC is dilated in size and collapses <50% with inspiration.
[2018-06-08 05:35] LABS: MEAN CELL VOLUME 86.9 fl (81.0-99.0); MEAN CORPUSCULAR HEMOGLOBIN 28.7 pg (27.0-31.0); RBC 3.49 Mil/uL (3.80-5.20); RED CELL DISTRIBUTION WIDTH 13.3 % (11.5-14.5); WHITE BLOOD COUNT 15.4 K/uL (4.8-10.8)
[2018-06-08 05:40] LABS: INR 1.1; PROTHROMBIN TIME 12.9 Seconds (9.8-13.1)
[2018-06-08 05:43] LABS: PARTIAL THROMBOPLASTIN TIME 50.3 Seconds (25.6-37.1)
[2018-06-08 05:58] LABS: CALCIUM 9.2 mg/dL (8.4-10.2)
[2018-06-08 07:56] VITALS: BP 115/46
[2018-06-08 08:17] VITALS: PULSE 54; RESP 16; TEMP 98.3; O2SAT 98
[2018-06-08] MEDS ORDERED: Metoprolol Succinate 25 mg XL Tab PO SCH ×2 (09:00)
--- NOTE | 2018-06-08 15:16 | PN ---
DATE: 06/07/2018 CRITICAL CARE PROGRESS NOTE LOCATION: The patient in ICU, bed 422. Time spent 35 minutes. The patient is seen and evaluated at the bedside. Past medical, surgical, family and social history reviewed as documented in H and P. Case discussed in multidisciplinary ICU rounds this morning. SUBJECTIVE: A 68-year-old female with history significant for diabetes type 2, hypertension, hyperlipidemia, presented to emergency room complaining of moderate to severe weakness associated with disorientation for about 16 hours prior to admission, status post fall at home, had two episodes of nonbilious, nonbloody vomiting. In ER, the patient was noted to be afebrile, heart rate 63, blood pressure 114/42, respiratory rate of 16, SpO2 100% on room air. Troponin was elevated to 14.9. EKG with mild ST-segment elevation in inferior leads with changes in leads I, aVL and V6. Code heart was called. Case discussed with sales assistants and salespersons, Dr. Celeste. The patient was admitted to ICU on heparin drip, aspirin, Plavix, Coreg, statin, and p.r.n. nitro. OBJECTIVE: GENERAL: Overnight, remains pain free, associated with shortness of breath. No palpitation. No arrhythmia. Telemetry showed sinus rhythm, normotensive, afebrile. This morning, alert, awake, follow commands, appropriate. Denies ongoing chest pain. No shortness of breath. VITAL SIGNS: Temperature 98.6, heart rate 62 regular, blood pressure 120/52, mean arterial pressure 74, respiratory rate 14, saturation 100%, on oxygen supplement 2 liters. Intake and output to be documented. Weight 114 pounds. HEAD, EYES, EARS, NOSE AND THROAT: Pupils are reactive. Conjunctivae are pink. Sclerae are white. NECK: Supple. Trachea central. CHEST: Bilateral breath sounds. Clear to auscultation. HEART: Rhythm regular. S1, S2 normal intensity. ABDOMEN: Bowel sounds present. Soft. Liver and spleen not palpable. Bladder not distended. EXTREMITIES: Without clubbing, cyanosis or edema. NEUROLOGICAL: Nonfocal. CURRENT MEDICATIONS: Include heparin drip as per protocol, Pravachol 20 mg p.o. daily, nitroglycerin 0.4 mg sublingual p.r.n. for pain, Accu-Chek with regular insulin coverage, glipizide 5 mg p.o. daily, Plavix 75 mg daily, Coreg 6.25 mg every 12 hours, aspirin 81 mg daily, amlodipine 5 mg p.o. daily. LABORATORY DATA: SMA-7 142, potassium 3.4, chloride 105, CO2 of 29, blood urea nitrogen 29, and creatinine 0.9. Troponin 14.9, second 27.1. Triglycerides 159, cholesterol 142, LDL 75, HDL 41. WBC 13.4, hemoglobin 10.5, hematocrit . PTT 102.4, being adjusted. Urinalysis negative. Chest x-ray shows no acute infiltrate or pulmonary vascular congestion. X-ray of the cervical spine, preliminary report negative. No fracture. Head CT, unremarkable. IMPRESSION: 1. Neuro: Alert and awake, follows commands and appropriate. 2. Pulmonary: No associated shortness of breath. 3. Cardiac: Acute inferior/right ventricular infarction with elevated troponin. The patient is deemed to be out of the window for emergency cardiac cath, remains pain free. Continue aspirin, Plavix, heparin drip, and beta delon. Hypertension under control. 4. Gastrointestinal. Normal bilirubin, elevated AST. 5. Renal. Normal renal function. Hypokalemia being supplemented. Normal magnesium level. 6. Endocrine. Blood sugar 123. Metformin on hold. Continue Accu-Chek with regular insulin coverage. 7. Hematology: Borderline leukocytosis, reactive. Normal hemoglobin, hematocrit, acceptable range. Mild anemia of chronic disease. No overt gastrointestinal bleeding. PLAN: Awaiting cardiology evaluation and further plan of care including cardiac catheterization and for possible angioplasty. Arnold Costa MD
--- NOTE | 2018-06-11 13:18 | CP.PCM.DIS ---
Provider - Provider Date of Admission: 06/06/18 22:05 Attending physician: Karsten Minor MD Consults: 06/06/18 21:57 Cardiology Consult Stat Comment: Consulting Provider: Adria Celeste Consulting Physician: Adria Celeste Reason for Consult: DC 06/06/18 22:07 Critical Care Consult Stat Comment: Consulting Provider: Taniya Herndon Consulting Physician: Taniya Herndon Reason for Consult: STEMI Time Spent in preparation of Discharge (in minutes): 35 Diagnosis - Discharge Diagnosis (1) STEMI (ST elevation myocardial infarction) Status: Acute Priority: High (2) Acute weakness Status: Acute Priority: High (3) Hyperlipidemia Status: Chronic Priority: Medium (4) DMII (diabetes mellitus, type 2) Status: Chronic Priority: Medium (5) Hypertension Status: Chronic Priority: Low Hospital Course - Lab Results Lab Results: Micro Results 06/07/18 00:29 Naris MRSA Culture (Admit) - Final MRSA NOT DETECTED Most Recent Lab Values WBC 15.4 K/uL (4.8-10.8) H 06/08/18 05:00 RBC 3.49 Mil/uL (3.80-5.20) L 06/08/18 05:00 Hgb 10.0 g/dL (12.0-16.0) L 06/08/18 05:00 Hct 30.3 % (34.0-47.0) L 06/08/18 05:00 MCV 86.9 fl (81.0-99.0) 06/08/18 05:00 MCH 28.7 pg (27.0-31.0) 06/08/18 05:00 MCHC 33.0 g/dL (33.0-37.0) 06/08/18 05:00 RDW 13.3 % (11.5-14.5) 06/08/18 05:00 Plt Count 193 K/uL (130-400) 06/08/18 05:00 MPV 7.9 fl (7.2-11.7) 06/06/18 21:02 Neut % (Auto) 81.2 % (50.0-75.0) H 06/06/18 21:02 Lymph % (Auto) 13.2 % (20.0-40.0) L 06/06/18 21:02 [place] % (Auto) 5.2 % (0.0-10.0) 06/06/18 21:02 Eos % (Auto) 0.1 % (0.0-4.0) 06/06/18 21:02 Baso % (Auto) 0.3 % (0.0-2.0) 06/06/18 21:02 Neut # (Auto) 11.5 K/uL (1.8-7.0) H 06/06/18 21:02 Lymph # (Auto) 1.9 K/uL (1.0-4.3) 06/06/18 21:02 [place] # (Auto) 0.7 K/uL (0.0-0.8) 06/06/18 21:02 Eos # (Auto) 0.0 K/uL (0.0-0.7) 06/06/18 21:02 Baso # (Auto) 0.0 K/uL (0.0-0.2) 06/06/18 21:02 PT 12.9 Seconds (9.8-13.1) 06/08/18 05:00 INR 1.1 06/08/18 05:00 APTT 50.3 Seconds (25.6-37.1) H 06/08/18 05:00 pO2 29 mm/Hg (30-55) L 06/06/18 21:35 VBG pH 7.45 (7.32-7.43) H 06/06/18 21:35 VBG pCO2 43 mmHg (40-60) 06/06/18 21:35 VBG HCO3 27.9 mmol/L 06/06/18 21:35 VBG Total CO2 31.2 mmol/L (22-28) H 06/06/18 21:35 VBG O2 Sat (Calc) 66.9 % (40-65) H 06/06/18 21:35 VBG Base Excess 5.2 mmol/L (0.0-2.0) H 06/06/18 21:35 VBG Potassium 3.8 mmol/L (3.6-5.2) 06/06/18 21:35 Sodium 141.0 mmol/L (132-148) 06/06/18 21:35 Chloride 106.0 mmol/L (98-107) 06/06/18 21:35 Glucose 109 mg/dL (65-105) H 06/06/18 21:35 Lactate 4.6 mmol/L (0.7-2.1) H* 06/06/18 21:35 FiO2 21.0 % 06/06/18 21:35 Crit Value Called To Prachi barr 06/06/18 21:35 Crit Value Called By 23 06/06/18 21:35 Crit Value Read Back Y 06/06/18 21:35 Blood Gas Notified Time 214206/06/18 21:35 Sodium 142 mmol/l (132-148) 06/08/18 05:00 Potassium 4.1 MMOL/L (3.6-5.0) 06/08/18 05:00 Chloride 104 mmol/L (98-107) 06/08/18 05:00 Carbon Dioxide 32 mmol/L (22-30) H 06/08/18 05:00 Anion Gap 10 (10-20) 06/08/18 05:00 BUN 35 mg/dl (7-17) H 06/08/18 05:00 Creatinine 1.2 mg/dl (0.7-1.2) 06/08/18 05:00 Est GFR ( Amer) 54 06/08/18 05:00 Est GFR (Non-Af Amer) 45 06/08/18 05:00 POC Glucose (mg/dL) 125 mg/dL (65-110) H 06/08/18 04:56 Random Glucose 107 mg/dL (65-105) H 06/08/18 05:00 Calcium 9.2 mg/dL (8.4-10.2) 06/08/18 05:00 Phosphorus 3.5 mg/dl (2.5-4.5) 06/07/18 03:50 Magnesium 1.8 MG/DL (1.6-2.3) 06/07/18 03:50 Total Bilirubin 0.7 mg/dl (0.2-1.3) 06/06/18 21:02 AST 146 U/L (14-36) H D 06/06/18 21:02 ALT 24 U/L (9-52) 06/06/18 21:02 Alkaline Phosphatase 48 U/L (38-126) 06/06/18 21:02 Troponin I 48.2000 ng/mL (0.00-0.120) H* 06/07/18 12:40 Total Protein 6.9 G/DL (6.3-8.2) 06/06/18 21:02 Albumin 4.0 g/dL (3.5-5.0) 06/06/18 21:02 Globulin 2.9 gm/dL (2.2-3.9) 06/06/18 21:02 Albumin/Globulin Ratio 1.4 (1.0-2.1) 06/06/18 21:02 Triglycerides 159 mg/DL (0-149) H 06/07/18 03:50 Cholesterol 142 mg/dL (0-199) 06/07/18 03:50 LDL Cholesterol Direct 75 mg/dL (0-129) 06/07/18 03:50 HDL Cholesterol 41 MG/DL (30-70) 06/07/18 03:50 Free T4 1.29 ng/dL (0.78-2.19) 06/07/18 03:50 Free T3 pg/mL 3.36 pg/mL (2.77-5.27) 06/07/18 03:50 TSH 3rd Generation 1.00 mIU/ML (0.46-4.68) 06/07/18 03:50 Venous Blood Potassium 3.8 mmol/L (3.6-5.2) 06/06/18 21:35 Urine Color Yellow (YELLOW) 06/06/18 21:13 Urine Clarity Slighty-cloudy (Clear) 06/06/18 21:13 Urine pH 7.0 (5.0-8.0) 06/06/18 21:13 Ur Specific [place] 1.023 (1.003-1.030) 06/06/18 21:13 Urine Protein 100 mg/dL (NEGATIVE) 06/06/18 21:13 Urine Glucose (UA) Neg mg/dL (NEGATIVE) 06/06/18 21:13 Urine Ketones Negative mg/dL (NEGATIVE) 06/06/18 21:13 Urine Blood Negative (NEGATIVE) 06/06/18 21:13 Urine Nitrate Negative (NEGATIVE) 06/06/18 21:13 Urine Bilirubin Negative (NEGATIVE) 06/06/18 21:13 Urine Urobilinogen 0.2-1.0 mg/dL (0.2-1.0) 06/06/18 21:13 Ur Leukocyte Esterase Small Leyla/uL (Negative) 06/06/18 21:13 Urine RBC (Auto) 4 /hpf (0-3) H 06/06/18 21:13 Urine Microscopic WBC 10 /hpf (0-5) H 06/06/18 21:13 Ur Squamous Epith Cells 4 /hpf (0-5) 06/06/18 21:13 - Date & Time of H&P Date of H&P: 06/07/18 Time of H&P: 12:05 Discharge Exam - Head Exam Head Exam: NORMAL INSPECTION Discharge Plan - Follow Up Plan Condition: CRITICAL Disposition: HOME/ ROUTINE Patient education suggested?: Yes Additional Instructions: F/U with PMD in one week.
== END 2018-06-08 07:55 | disposition short-term general hospital (02) | DRG 282 ==
LOC: H.ER 18:29 → H.ERHOLD 22:05 → H.ICU/CCU 23:30
PROVIDERS: ADMIT Internal Medicine Pulmonary Disease; ATTEND Internal Medicine Pulmonary Disease
DX: I21.3 ST elevation (STEMI) myocardial infarction of unspecified site (principal); E11.9 Type 2 diabetes mellitus without complications; D63.8 Anemia in other chronic diseases classified elsewhere; D72.829 Elevated white blood cell count, unspecified; E78.00 Pure hypercholesterolemia, unspecified; E78.5 Hyperlipidemia, unspecified; E87.6 Hypokalemia; I10 Essential (primary) hypertension; Z91.81 History of falling; Z87.891 Personal history of nicotine dependence; H26.9 Unspecified cataract; Z79.84 Long term (current) use of oral hypoglycemic drugs; Z79.899 Other long term (current) drug therapy; R00.0 Tachycardia, unspecified; R74.0 Nonspecific elevation of levels of transaminase and lactic acid dehydrogenase [LDH]

== ENCOUNTER 2018-06-19 15:30 | Inpatient (IN) | payer OTHER ==
[2018-06-19 15:59] VITALS: BMI 22.5
[2018-06-19] MEDS ORDERED: Oxycodone/Acetaminophen 5/325 mg Tab PO PRN (18:28)
[2018-06-19 20:15] VITALS: RESP 20
[2018-06-19] MEDS: Pravastatin Sodium 20 MG TAB PO SCH (21:12)
[2018-06-19] MEDS: Insulin Lispro (humaLOG) 100 Units/ml Inj SC SCH (21:31)
[2018-06-20 06:49] LABS: HEMOGLOBIN 10.3 g/dL (12.0-16.0); MEAN CELL VOLUME 85.8 fl (81.0-99.0); MEAN CORPUSCULAR HEMOGLOBIN 28.6 pg (27.0-31.0); MEAN CORPUSCULAR HGB CONC 33.4 g/dL (33.0-37.0); RBC 3.6 Mil/uL (3.80-5.20); RED CELL DISTRIBUTION WIDTH 14.6 % (11.5-14.5); WHITE BLOOD COUNT 9.5 K/uL (4.8-10.8)
[2018-06-20 06:52] LABS: INR 1.1; PROTHROMBIN TIME 12.5 Seconds (9.8-13.1)
[2018-06-20 06:54] LABS: PARTIAL THROMBOPLASTIN TIME 33.6 Seconds (25.6-37.1)
[2018-06-20 07:07] LABS: ALT/SGPT 28 U/L (9-52); AST/SGOT 44 U/L (14-36); BLOOD UREA NITROGEN 14 mg/dl (7-17); CALCIUM 9.4 mg/dL (8.4-10.2); GFR NON-AFRICAN AMERICAN > 60; HDL CHOLESTEROL 20 MG/DL (30-70)
[2018-06-20 07:17] LABS: LDL CHOLESTEROL 64 mg/dL (0-129)
[2018-06-20] MEDS: Insulin Lispro (humaLOG) 100 Units/ml Inj SC SCH ×3 (07:30→17:16)
[2018-06-20] MEDS: Cholecalciferol 1,000 INTLU TAB PO SCH (08:35)
--- NOTE | 2018-06-20 11:58 | CP.PCM.CON ---
<Shahid Bell - Last Filed: 06/20/18 16:09> History of Present Illness - History of Present Illness History of Present Illness: Shahid Bell, PGY-1, Cardiology Consult Note for Dr. Celeste 68 year old female with past medical history of hypertension, hyperlipidemia, diabetes mellitus type II presents status post fall. Patient fell on the the way to the bathroom at home and hit her head. Patient denies loss of consciousness. Patient reported prior to the fall, she had not had much appetite for 2 days due to severe nausea. Patient had 2 episodes of NBNB vomiting day prior to fall and 1 episode in the emergency department. Patient was found to have ST elevations in III and aVF and depressions in I, aVL, and V6. Patient was transferred to [place] for cardiac catheterization by Dr. Sheehan. Patient had significant 3 vessel disease and was sent to [place] for CABG. Patient presents to [facility] for rehabilitation. Patient currently is asymptomatic. Patient has been able to ambulate 20 feet prior to tiring of bilateral lower extremities. PMD: hypertension, hyperlipidemia, diabetes mellitus type II PSH: denies Allergies: NKDA FMHx: noncontributary SHx: smoked 1 PPD for "years", denies alcohol or recreational drug use Patient had stress test 15 years ago which she reports was normal. Patient had catheterization in 1999 with no stents placed as per patient. Review of Systems - Review of Systems Review of Systems: except as mentioned in HPI Past Patient History - Past Medical History & Family History Past Medical History?: Yes - Past Social History Smoking Status: Former Smoker - CARDIAC Hx Cardiac Disorders: Yes Hx Hypercholesterolemia: Yes Hx Hypertension: Yes - PULMONARY Hx Respiratory Disorders: No - NEUROLOGICAL Hx Neurological Disorder: No - HEENT Hx Cataracts: Yes (bilat... no surgery yet) - RENAL Hx Chronic Kidney Disease: No - ENDOCRINE/METABOLIC Hx Diabetes Mellitus Type 2: Yes - HEMATOLOGICAL/ONCOLOGICAL Hx Blood Disorders: No - INTEGUMENTARY Hx Dermatological Problems: No - MUSCULOSKELETAL/RHEUMATOLOGICAL Hx Musculoskeletal Disorders: No Hx Falls: Yes - GASTROINTESTINAL Hx Gastrointestinal Disorders: No - GENITOURINARY/GYNECOLOGICAL Hx Genitourinary Disorders: No - PSYCHIATRIC Hx Psychophysiologic Disorder: No Hx Substance Use: No - SURGICAL HISTORY Hx Surgeries: Yes Hx Angioplasty: Yes (1999) Hx Coronary Artery Bypass Graft: Yes (06/11/18) - ANESTHESIA Hx Anesthesia: Yes Hx Anesthesia Reactions: No Meds Allergies/Adverse Reactions: Allergies Allergy/AdvReac Type Severity Reaction Status Date / Time No Known Allergies Allergy Verified 06/06/18 18:48 - Medications Medications: Current Medications Acetaminophen (Tylenol 325mg Tab) 650 mg PO Q4 PRN PRN Reason: Pain, Mild (1-3) Aspirin (Ecotrin) 81 mg PO DAILY [facility] Last Admin: 06/20/18 08:37 Dose: 81 mg Carvedilol (Coreg) 3.125 mg PO Q12 [facility] Last Admin: 06/20/18 08:34 Dose: 3.125 mg Cholecalciferol (Vitamin D) 1,000 intlu PO DAILY [facility] Last Admin: 06/20/18 08:35 Dose: 1,000 intlu Clopidogrel Bisulfate (Plavix) 75 mg PO DAILY [facility] Last Admin: 06/20/18 08:36 Dose: 75 mg Docusate Sodium (Colace) 100 mg PO BID [facility] Last Admin: 06/20/18 08:35 Dose: 100 mg Famotidine (Pepcid) 20 mg PO BID [facility] Last Admin: 06/20/18 08:36 Dose: 20 mg Insulin Human Lispro (Humalog) 0 units [facility]; Protocol Last Admin: 06/20/18 07:30 Dose: Not Given Losartan Potassium (Cozaar) 25 mg PO DAILY [facility] Last Admin: 06/20/18 08:37 Dose: 25 mg Metformin HCl (Glucophage) 1,000 mg PO BID [facility] Last Admin: 06/20/18 08:35 Dose: 1,000 mg Oxycodone/Acetaminophen (Percocet 5/325 Mg Tab) 1 tab PO Q6 PRN PRN Reason: Pain, moderate (4-7) Stop: 06/22/18 18:29 Pravastatin Sodium (Pravachol) 20 mg PO HS [facility] Last Admin: 06/19/18 21:12 Dose: 20 mg Sennosides (Senokot Tab) 8.6 mg PO DAILY [facility] Last Admin: 06/20/18 08:36 Dose: 8.6 mg Physical Exam - Constitutional Appears: Well, Non-toxic, No Acute Distress - Head Exam Head Exam: ATRAUMATIC, NORMAL INSPECTION, NORMOCEPHALIC - Eye Exam Eye Exam: EOMI, PERRL - ENT Exam ENT Exam: Mucous Membranes Moist - Respiratory Exam Respiratory Exam: Clear to Auscultation Bilateral, NORMAL BREATHING PATTERN. absent: Rales, Rhonchi, Wheezes - Cardiovascular Exam Cardiovascular Exam: REGULAR RHYTHM, RRR, +S1, +S2 - GI/Abdominal Exam GI & Abdominal Exam: Normal Bowel Sounds, Soft. absent: Tenderness - Extremities Exam Extremities exam: Positive for: full ROM, normal inspection. Negative for: pedal edema - Neurological Exam Neurological exam: Alert, CN II-XII Intact, Oriented x3 - Skin Skin Exam: Dry, Intact, Normal Color Results - Vital Signs Recent Vital Signs: Last Vital Signs Temp 97.8 F 06/20/18 08:20 Pulse 70 06/20/18 08:37 Resp 20 06/20/18 08:20 BP 149/74 06/20/18 08:37 Pulse Ox 99 06/20/18 08:20 - Labs Result Diagrams: 06/20/18 06:30 06/20/18 06:30 Labs: Laboratory Results - last 24 hr 06/19/18 06/19/18 06/20/18 16:41 20:41 06:13 WBC RBC Hgb Hct MCV MCH MCHC RDW Plt Count PT INR APTT Sodium Potassium Chloride Carbon Dioxide Anion Gap BUN Creatinine Est GFR ( Amer) Est GFR (Non-Af Amer) POC Glucose (mg/dL) 114 H 143 H 120 H Random Glucose Calcium Total Bilirubin AST ALT Alkaline Phosphatase Total Protein Albumin Globulin Albumin/Globulin Ratio Triglycerides Cholesterol LDL Cholesterol Direct HDL Cholesterol Thyroxine (T4) TSH 3rd Generation 06/20/18 06/20/18 06/20/18 06:30 06:30 06:30 WBC 9.5 RBC 3.60 L Hgb 10.3 L Hct 30.8 L MCV 85.8 MCH 28.6 MCHC 33.4 RDW 14.6 H Plt Count 517 H D PT 12.5 INR 1.1 APTT 33.6 Sodium 139 Potassium 4.2 Chloride 104 Carbon Dioxide 29 Anion Gap 10 BUN 14 Creatinine 0.9 Est GFR ( Amer) > 60 Est GFR (Non-Af Amer) > 60 POC Glucose (mg/dL) Random Glucose 119 H Calcium 9.4 Total Bilirubin 0.6 AST 44 H ALT 28 Alkaline Phosphatase 80 Total Protein 6.0 L Albumin 3.0 L D Globulin 2.9 Albumin/Globulin Ratio 1.0 Triglycerides 218 H D Cholesterol 116 LDL Cholesterol Direct 64 HDL Cholesterol 20 L Thyroxine (T4) 9.12 TSH 3rd Generation 1.57 06/20/18 10:26 WBC RBC Hgb Hct MCV MCH MCHC RDW Plt Count PT INR APTT Sodium Potassium Chloride Carbon Dioxide Anion Gap BUN Creatinine Est GFR ( Amer) Est GFR (Non-Af Amer) POC Glucose (mg/dL) 153 H Random Glucose Calcium Total Bilirubin AST ALT Alkaline Phosphatase Total Protein Albumin Globulin Albumin/Globulin Ratio Triglycerides Cholesterol LDL Cholesterol Direct HDL Cholesterol Thyroxine (T4) TSH 3rd Generation Assessment & Plan - Assessment and Plan (Free Text) Assessment: STEMI Hypertension Hyperlipidemia Diabetes Mellitus Plan: STEMI Hypertension Hyperlipidemia Diabetes Mellitus EKG prior to cath: ST elevations in III and aVF. ST depressions in I, aVL, and V6 Patient is status post CABG Will obtain BNP and echo post cardiac CABG. Will increase coreg to 6.25 BID Medications: Aspirin 81 mg daily Coreg 6.25 mg Q12 Plavix 75 mg daily Cozaar 25 mg daily Pravastatin 20 mg HS Metformin 1000 mg BID Sliding scale insulin - Date & Time Date: 06/20/18 Time: 12:00 <Adria Celeste - Last Filed: 06/20/18 23:30> Meds - Medications Medications: Current Medications Acetaminophen (Tylenol 325mg Tab) 650 mg PO Q4 PRN PRN Reason: Pain, Mild (1-3) Aspirin (Ecotrin) 81 mg PO DAILY [facility] Last Admin: 06/20/18 08:37 Dose: 81 mg Carvedilol (Coreg) 6.25 mg PO Q12 [facility] Last Admin: 06/20/18 21:35 Dose: 6.25 mg Cholecalciferol (Vitamin D) 1,000 intlu PO DAILY [facility] Last Admin: 06/20/18 08:35 Dose: 1,000 intlu Clopidogrel Bisulfate (Plavix) 75 mg PO DAILY [facility] Last Admin: 06/20/18 08:36 Dose: 75 mg Docusate Sodium (Colace) 100 mg PO BID [facility] Last Admin: 06/20/18 17:15 Dose: 100 mg Famotidine (Pepcid) 20 mg PO BID [facility] Last Admin: 06/20/18 17:16 Dose: 20 mg Insulin Human Lispro (Humalog) 0 units [facility]; Protocol Last Admin: 06/20/18 17:16 Dose: Not Given Losartan Potassium (Cozaar) 25 mg PO DAILY [facility] Last Admin: 06/20/18 08:37 Dose: 25 mg Metformin HCl (Glucophage) 1,000 mg PO BID [facility] Last Admin: 06/20/18 17:16 Dose: 1,000 mg Oxycodone/Acetaminophen (Percocet 5/325 Mg Tab) 1 tab PO Q6 PRN PRN Reason: Pain, moderate (4-7) Stop: 06/22/18 18:29 Pravastatin Sodium (Pravachol) 20 mg PO HS [facility] Last Admin: 06/20/18 21:36 Dose: 20 mg Sennosides (Senokot Tab) 8.6 mg PO DAILY [facility] Last Admin: 06/20/18 08:36 Dose: 8.6 mg Results - Vital Signs Recent Vital Signs: Last Vital Signs Temp 98.2 F 06/20/18 21:49 Pulse 91 H 06/20/18 21:49 Resp 20 06/20/18 21:49 BP 148/79 06/20/18 21:49 Pulse Ox 94 L 06/20/18 21:49 - Labs Result Diagrams: 06/20/18 06:30 06/20/18 06:30 Labs: Laboratory Results - last 24 hr 06/20/18 06/20/18 06/20/18 06:13 06:30 06:30 WBC 9.5 RBC 3.60 L Hgb 10.3 L Hct 30.8 L MCV 85.8 MCH 28.6 MCHC 33.4 RDW 14.6 H Plt Count 517 H D PT 12.5 INR 1.1 APTT 33.6 Sodium Potassium Chloride Carbon Dioxide Anion Gap BUN Creatinine Est GFR ( Amer) Est GFR (Non-Af Amer) POC Glucose (mg/dL) 120 H Random Glucose Hemoglobin A1c Calcium Total Bilirubin AST ALT Alkaline Phosphatase NT-Pro-B Natriuret Pep Total Protein Albumin Globulin Albumin/Globulin Ratio Triglycerides Cholesterol LDL Cholesterol Direct HDL Cholesterol Thyroxine (T4) TSH 3rd Generation Urine Color Urine Clarity Urine pH Ur Specific [place] Urine Protein Urine Glucose (UA) Urine Ketones Urine Blood Urine Nitrate Urine Bilirubin Urine Urobilinogen Ur Leukocyte Esterase Urine RBC (Auto) Urine Microscopic WBC Ur Squamous Epith Cells 06/20/18 06/20/18 06/20/18 06:30 06:30 10:26 WBC RBC Hgb Hct MCV MCH MCHC RDW Plt Count PT INR APTT Sodium 139 Potassium 4.2 Chloride 104 Carbon Dioxide 29 Anion Gap 10 BUN 14 Creatinine 0.9 Est GFR ( Amer) > 60 Est GFR (Non-Af Amer) > 60 POC Glucose (mg/dL) 153 H Random Glucose 119 H Hemoglobin A1c 6.1 Calcium 9.4 Total Bilirubin 0.6 AST 44 H ALT 28 Alkaline Phosphatase 80 NT-Pro-B Natriuret Pep Total Protein 6.0 L Albumin 3.0 L D Globulin 2.9 Albumin/Globulin Ratio 1.0 Triglycerides 218 H D Cholesterol 116 LDL Cholesterol Direct 64 HDL Cholesterol 20 L Thyroxine (T4) 9.12 TSH 3rd Generation 1.57 Urine Color Urine Clarity Urine pH Ur Specific [place] Urine Protein Urine Glucose (UA) Urine Ketones Urine Blood Urine Nitrate Urine Bilirubin Urine Urobilinogen Ur Leukocyte Esterase Urine RBC (Auto) Urine Microscopic WBC Ur Squamous Epith Cells 06/20/18 06/20/18 06/20/18 16:38 16:39 16:45 WBC RBC Hgb Hct MCV MCH MCHC RDW Plt Count PT INR APTT Sodium Potassium Chloride Carbon Dioxide Anion Gap BUN Creatinine Est GFR ( Amer) Est GFR (Non-Af Amer) POC Glucose (mg/dL) 130 H Random Glucose Hemoglobin A1c Calcium Total Bilirubin AST ALT Alkaline Phosphatase NT-Pro-B Natriuret Pep 5810 H Total Protein Albumin Globulin Albumin/Globulin Ratio Triglycerides Cholesterol LDL Cholesterol Direct HDL Cholesterol Thyroxine (T4) TSH 3rd Generation Urine Color Yellow Urine Clarity Slighty-cloudy Urine pH 8.0 Ur Specific [place] 1.013 Urine Protein Negative Urine Glucose (UA) Neg Urine Ketones Trace Urine Blood Negative Urine Nitrate Negative Urine Bilirubin Negative Urine Urobilinogen 2.0 H Ur Leukocyte Esterase Neg Urine RBC (Auto) < 1 Urine Microscopic WBC 2 Ur Squamous Epith Cells 8 H Attending/Attestation - Attestation I have personally seen and examined this patient.: Yes I have fully participated in the care of the patient.: Yes I have reviewed all pertinent clinical information: Yes Notes (Text): 06/20/18 23:30 echo post cabg inc coreg cont cardiac meds
[2018-06-20 16:53] LABS: SQUAMOUS EPITHIAL 8 /hpf (0-5); URINE BILIRUBIN NEGATIVE (NEGATIVE); URINE BLOOD NEGATIVE (NEGATIVE); URINE CLARITY SLIGHTY-CLOUDY (Clear); URINE COLOR YELLOW (YELLOW); URINE GLUCOSE (UA) NEG (NEGATIVE); URINE LEUKOCYTE ESTERASE NEG Leu/uL (Negative); URINE PROTEIN NEGATIVE (NEGATIVE)
[2018-06-20] MEDS: Pravastatin Sodium 20 MG TAB PO SCH (21:36)
[2018-06-21] MEDS: Insulin Lispro (humaLOG) 100 Units/ml Inj SC SCH ×5 (00:50→21:07)
[2018-06-21] MEDS: Cholecalciferol 1,000 INTLU TAB PO SCH (10:40)
--- NOTE | 2018-06-21 13:10 | CP.PCM.HP ---
History of Present Illness - History of Present Illness History of Present Illness: CC: S/P CABG 68 y/o F, Hx. HTN, Hyperlypidemia, DMII, Cataract b/l, Angioplasty 1999, brought to [facility] for rehab s/p CABG at [facility] in [facility] on 06/11/18. PMHx: Initially, Pt was admitted to [facility], on 06/06/18 due to fall/trauma associated to severe generalized weakness, headache, nausea, vomiting and lack of appetite x 2 days. On evaluation was found with acute ME/STEMI, on 06/08/18, Pt was transported to [facility] to have Cardiac Cath, there after, from this facility, Pt was referred to [facility] to have CABG surgery. Worsening symptoms: Weakness. Aggravated factor: Lifting/ADL's. Pt denied: Fever, chills, n/v/d, abdominal pain, urinary symptoms, CP, palpitations, SOB, cough, sick contact. Present on Admission - Present on Admission Any Indicators Present on Admission: No Review of Systems - Constitutional Constitutional: Weakness - EENT Eyes: Blurred Vision Ears: Other (negative) Nose/Mouth/Throat: Other (negative) - Cardiovascular Cardiovascular: Other (negative) - Respiratory Respiratory: Other (negative) - Gastrointestinal Gastrointestinal: Other (negative) - Genitourinary Genitourinary: Other (negative) - Musculoskeletal Musculoskeletal: Other (negative) - Integumentary Integumentary: Other (chest incision line from surgery) - Neurological Neurological: Weakness - Psychiatric Psychiatric: Other (negative) - Endocrine Endocrine: Other (negtaive) - Hematologic/Lymphatic Hematologic: Other (negative) Past Patient History - Past Medical History & Family History Past Medical History?: Yes - Past Social History Smoking Status: Former Smoker Alcohol: None Drugs: Denies Home Situation {Lives}: With Family - CARDIAC Hx Cardiac Disorders: Yes Hx Hypercholesterolemia: Yes Hx Hypertension: Yes - PULMONARY Hx Respiratory Disorders: No - NEUROLOGICAL Hx Neurological Disorder: No - HEENT Hx HEENT Problems: Yes Hx Cataracts: Yes (bilat... no surgery yet) - RENAL Hx Chronic Kidney Disease: No - ENDOCRINE/METABOLIC Hx Endocrine Disorders: Yes Hx Diabetes Mellitus Type 2: Yes - HEMATOLOGICAL/ONCOLOGICAL Hx Blood Disorders: No - INTEGUMENTARY Hx Dermatological Problems: No - MUSCULOSKELETAL/RHEUMATOLOGICAL Hx Musculoskeletal Disorders: Yes Hx Falls: Yes - GASTROINTESTINAL Hx Gastrointestinal Disorders: No - GENITOURINARY/GYNECOLOGICAL Hx Genitourinary Disorders: No - PSYCHIATRIC Hx Psychophysiologic Disorder: No Hx Substance Use: No - SURGICAL HISTORY Hx Surgeries: Yes Hx Angioplasty: Yes (1999) Hx Coronary Artery Bypass Graft: Yes (06/11/18) - ANESTHESIA Hx Anesthesia: Yes Hx Anesthesia Reactions: No Meds Allergies/Adverse Reactions: Allergies Allergy/AdvReac Type Severity Reaction Status Date / Time No Known Allergies Allergy Verified 06/06/18 18:48 Physical Exam - Constitutional Appears: No Acute Distress - Head Exam Head Exam: NORMAL INSPECTION - Eye Exam Additional comments: Cataract b/l - ENT Exam ENT Exam: Normal Exam - Neck Exam Neck exam: Positive for: Normal Inspection - Respiratory Exam Respiratory Exam: NORMAL BREATHING PATTERN - Cardiovascular Exam Cardiovascular Exam: REGULAR RHYTHM Additional comments: Chest incision dry, healing well - GI/Abdominal Exam GI & Abdominal Exam: Normal Bowel Sounds, Soft - Extremities Exam Additional comments: RLL incision healing well, groin wit tiny areas of ecchymosis - Back Exam Back exam: NORMAL INSPECTION - Neurological Exam Neurological exam: Alert, CN II-XII Intact, Oriented x3 Additional comments: no focal/motor sensory deficit, generalized weakness - Psychiatric Exam Psychiatric exam: Normal Mood - Skin Skin Exam: Warm Results - Vital Signs Recent Vital Signs: Last Vital Signs Temp 97.9 F 06/21/18 07:36 Pulse 81 06/21/18 10:38 Resp 20 06/21/18 07:36 BP 137/74 06/21/18 10:38 Pulse Ox 98 06/21/18 10:00 reviewed J.PAlcides - Labs Result Diagrams: 06/24/18 06:05 06/24/18 06:05 Labs: Laboratory Results - last 24 hr 06/20/18 06/20/18 06/20/18 16:38 16:39 16:45 POC Glucose (mg/dL) 130 H NT-Pro-B Natriuret Pep 5810 H Urine Color Yellow Urine Clarity Slighty-cloudy Urine pH 8.0 Ur Specific [place] 1.013 Urine Protein Negative Urine Glucose (UA) Neg Urine Ketones Trace Urine Blood Negative Urine Nitrate Negative Urine Bilirubin Negative Urine Urobilinogen 2.0 H Ur Leukocyte Esterase Neg Urine RBC (Auto) < 1 Urine Microscopic WBC 2 Ur Squamous Epith Cells 8 H 06/20/18 06/21/18 06/21/18 20:32 06:12 10:44 POC Glucose (mg/dL) 122 H 125 H 180 H NT-Pro-B Natriuret Pep Urine Color Urine Clarity Urine pH Ur Specific [place] Urine Protein Urine Glucose (UA) Urine Ketones Urine Blood Urine Nitrate Urine Bilirubin Urine Urobilinogen Ur Leukocyte Esterase Urine RBC (Auto) Urine Microscopic WBC Ur Squamous Epith Cells reviewed J.P. Assessment & Plan (1) Weakness generalized Status: Acute (2) S/P CABG (coronary artery bypass graft) Status: Acute Priority: High (3) DMII (diabetes mellitus, type 2) Status: Chronic Priority: Medium (4) Hyperlipidemia Status: Chronic Priority: Medium (5) Hypertension Status: Chronic Priority: Medium - Assessment and Plan (Free Text) Plan: F/U Echo, continue Coreg, Cozaar, Plavix, Insulin and restpf Tx, PT/OT. Cardiology consult appreciated. - Date & Time Date: 06/21/18
--- NOTE | 2018-06-21 15:28 | CP.PCM.PN ---
Subjective - Date & Time of Evaluation Date of Evaluation: 06/21/18 Time of Evaluation: 15:26 - Subjective Subjective: Shahid Bell, PGY-1, Cardiology Progress Note for Dr. Celeste Patient seen and evaluated at bedside. Patient had no acute overnight events. Patient has been able to ambulate at least 20 feet before tiring. Objective - Vital Signs/Intake and Output Vital Signs (last 24 hours): Temp Pulse Resp BP Pulse Ox 97.9 F 79 20 137/74 97 06/21/18 07:36 06/21/18 13:00 06/21/18 07:36 06/21/18 10:38 06/21/18 13:00 - Medications Medications: Current Medications Acetaminophen (Tylenol 325mg Tab) 650 mg PO Q4 PRN PRN Reason: Pain, Mild (1-3) Aspirin (Ecotrin) 81 mg PO DAILY [facility] Last Admin: 06/21/18 10:38 Dose: 81 mg Carvedilol (Coreg) 6.25 mg PO Q12 [facility] Last Admin: 06/21/18 10:36 Dose: 6.25 mg Cholecalciferol (Vitamin D) 1,000 intlu PO DAILY [facility] Last Admin: 06/21/18 10:40 Dose: 1,000 intlu Clopidogrel Bisulfate (Plavix) 75 mg PO DAILY [facility] Last Admin: 06/21/18 10:39 Dose: 75 mg Docusate Sodium (Colace) 100 mg PO BID [facility] Last Admin: 06/21/18 10:36 Dose: 100 mg Famotidine (Pepcid) 20 mg PO BID [facility] Last Admin: 06/21/18 10:39 Dose: 20 mg Insulin Human Lispro (Humalog) 0 units SC [facility]; Protocol Last Admin: 06/21/18 12:38 Dose: 1 u Losartan Potassium (Cozaar) 25 mg PO DAILY [facility] Last Admin: 06/21/18 10:38 Dose: 25 mg Metformin HCl (Glucophage) 1,000 mg PO BID [facility] Last Admin: 06/21/18 07:59 Dose: 1,000 mg Oxycodone/Acetaminophen (Percocet 5/325 Mg Tab) 1 tab PO Q6 PRN PRN Reason: Pain, moderate (4-7) Stop: 06/22/18 18:29 Pravastatin Sodium (Pravachol) 20 mg PO HS [facility] Last Admin: 06/20/18 21:36 Dose: 20 mg Sennosides (Senokot Tab) 8.6 mg PO DAILY [facility] Last Admin: 06/21/18 10:39 Dose: 8.6 mg - Labs Labs: 06/20/18 06:30 06/20/18 06:30 PT 12.5 Seconds (9.8-13.1) 06/20/18 06:30 INR 1.1 06/20/18 06:30 APTT 33.6 Seconds (25.6-37.1) 06/20/18 06:30 - Constitutional Appears: Well, Non-toxic, No Acute Distress - Head Exam Head Exam: ATRAUMATIC, NORMAL INSPECTION, NORMOCEPHALIC - Eye Exam Eye Exam: EOMI, PERRL - ENT Exam ENT Exam: Mucous Membranes Moist - Respiratory Exam Respiratory Exam: Clear to Auscultation Bilateral, NORMAL BREATHING PATTERN. absent: Rales, Rhonchi, Wheezes - Cardiovascular Exam Cardiovascular Exam: REGULAR RHYTHM, RRR, +S1, +S2 - GI/Abdominal Exam GI & Abdominal Exam: Normal Bowel Sounds, Soft. absent: Tenderness - Extremities Exam Extremities exam: Positive for: full ROM, normal inspection. Negative for: pedal edema - Neurological Exam Neurological exam: Alert, CN II-XII Intact, Oriented x3 - Skin Skin Exam: Dry, Intact, Normal Color Assessment and Plan (1) Elevated brain natriuretic peptide (BNP) level Assessment & Plan: BNP elevated at 5810 Will obtain echocardiogram for further evaluation post CABG Status: Acute (2) S/P CABG (coronary artery bypass graft) Assessment & Plan: Patient is status post CABG Continue with aspirin, plavix, pravastatin, coreg, cozaar Status: Acute (3) DMII (diabetes mellitus, type 2) Assessment & Plan: HgbA1c: 6.1 Patient is currently euglycemia. Continue with metformin Status: Chronic (4) Hyperlipidemia Assessment & Plan: T Continue with pravastatin Status: Chronic (5) Hypertension Assessment & Plan: Patient has been normotensive. Continue with coreg, cozaar Status: Chronic
[2018-06-21] MEDS: Pravastatin Sodium 20 MG TAB PO SCH (21:09)
[2018-06-22] MEDS: Insulin Lispro (humaLOG) 100 Units/ml Inj SC SCH ×4 (07:45→22:38)
[2018-06-22] MEDS: Cholecalciferol 1,000 INTLU TAB PO SCH (08:37)
--- NOTE | 2018-06-22 12:23 | CP.PCM.PN ---
Subjective - Date & Time of Evaluation Date of Evaluation: 06/22/18 Time of Evaluation: 12:21 - Subjective Subjective: Shahid Bell, PGY-1, Cardiology Progress Note for Dr. Celeste Patient seen and evaluated at bedside. Patient had no acute overnight events. Patient has been able to ambulate at least 20 feet before tiring. Objective - Vital Signs/Intake and Output Vital Signs (last 24 hours): Temp Pulse Resp BP Pulse Ox 98.4 F 81 20 149/76 95 06/22/18 10:00 06/22/18 10:00 06/22/18 10:00 06/22/18 10:00 06/22/18 10:00 - Medications Medications: Current Medications Acetaminophen (Tylenol 325mg Tab) 650 mg PO Q4 PRN PRN Reason: Pain, Mild (1-3) Aspirin (Ecotrin) 81 mg PO DAILY [facility] Last Admin: 06/22/18 08:38 Dose: 81 mg Carvedilol (Coreg) 6.25 mg PO Q12 [facility] Last Admin: 06/22/18 08:38 Dose: 6.25 mg Cholecalciferol (Vitamin D) 1,000 intlu PO DAILY [facility] Last Admin: 06/22/18 08:37 Dose: 1,000 intlu Clopidogrel Bisulfate (Plavix) 75 mg PO DAILY [facility] Last Admin: 06/22/18 08:37 Dose: 75 mg Docusate Sodium (Colace) 100 mg PO BID [facility] Last Admin: 06/22/18 08:36 Dose: 100 mg Famotidine (Pepcid) 20 mg PO BID [facility] Last Admin: 06/22/18 08:37 Dose: 20 mg Insulin Human Lispro (Humalog) 0 units SC [facility]; Protocol Last Admin: 06/22/18 07:45 Dose: 1 u Losartan Potassium (Cozaar) 25 mg PO DAILY [facility] Last Admin: 06/22/18 08:38 Dose: 25 mg Metformin HCl (Glucophage) 1,000 mg PO BID [facility] Last Admin: 06/22/18 08:37 Dose: 1,000 mg Oxycodone/Acetaminophen (Percocet 5/325 Mg Tab) 1 tab PO Q6 PRN PRN Reason: Pain, moderate (4-7) Stop: 06/22/18 18:29 Pravastatin Sodium (Pravachol) 20 mg PO HS [facility] Last Admin: 06/21/18 21:09 Dose: 20 mg Sennosides (Senokot Tab) 8.6 mg PO DAILY [facility] Last Admin: 06/22/18 08:40 Dose: 8.6 mg - Labs Labs: 06/20/18 06:30 06/20/18 06:30 PT 12.5 Seconds (9.8-13.1) 06/20/18 06:30 INR 1.1 06/20/18 06:30 APTT 33.6 Seconds (25.6-37.1) 06/20/18 06:30 - Constitutional Appears: Well, Non-toxic, No Acute Distress - Head Exam Head Exam: ATRAUMATIC, NORMAL INSPECTION, NORMOCEPHALIC - Eye Exam Eye Exam: EOMI, PERRL - ENT Exam ENT Exam: Mucous Membranes Moist - Respiratory Exam Respiratory Exam: Clear to Auscultation Bilateral, NORMAL BREATHING PATTERN. absent: Rales, Rhonchi, Wheezes - Cardiovascular Exam Cardiovascular Exam: REGULAR RHYTHM, RRR, +S1, +S2 - GI/Abdominal Exam GI & Abdominal Exam: Normal Bowel Sounds, Soft. absent: Tenderness - Extremities Exam Extremities exam: Positive for: full ROM, normal inspection. Negative for: pedal edema - Neurological Exam Neurological exam: Alert, CN II-XII Intact, Oriented x3 - Skin Skin Exam: Dry, Intact, Normal Color Assessment and Plan (1) Elevated brain natriuretic peptide (BNP) level Assessment & Plan: BNP elevated at 5810 Will obtain echocardiogram for further evaluation post CABG Status: Acute (2) S/P CABG (coronary artery bypass graft) Assessment & Plan: Patient is status post CABG Continue with aspirin, plavix, pravastatin, coreg, cozaar Status: Acute (3) DMII (diabetes mellitus, type 2) Assessment & Plan: HgbA1c: 6.1 Continue with metformin Status: Chronic (4) Hyperlipidemia Assessment & Plan: T Continue with pravastatin Status: Chronic (5) Hypertension Assessment & Plan: Patient has been normotensive. Continue with coreg, cozaar Status: Chronic
--- NOTE | 2018-06-22 13:45 | CP.PCM.PN ---
Subjective - Subjective Subjective: no AD, no C/P , no SOB Objective - Vital Signs/Intake and Output Vital Signs (last 24 hours): Temp Pulse Resp BP Pulse Ox 98.4 F 81 20 149/76 95 06/22/18 10:00 06/22/18 10:00 06/22/18 10:00 06/22/18 10:00 06/22/18 10:00 - Medications Medications: Current Medications Acetaminophen (Tylenol 325mg Tab) 650 mg PO Q4 PRN PRN Reason: Pain, Mild (1-3) Aspirin (Ecotrin) 81 mg PO DAILY [facility] Last Admin: 06/22/18 08:38 Dose: 81 mg Carvedilol (Coreg) 6.25 mg PO Q12 [facility] Last Admin: 06/22/18 08:38 Dose: 6.25 mg Cholecalciferol (Vitamin D) 1,000 intlu PO DAILY [facility] Last Admin: 06/22/18 08:37 Dose: 1,000 intlu Clopidogrel Bisulfate (Plavix) 75 mg PO DAILY [facility] Last Admin: 06/22/18 08:37 Dose: 75 mg Docusate Sodium (Colace) 100 mg PO BID [facility] Last Admin: 06/22/18 08:36 Dose: 100 mg Famotidine (Pepcid) 20 mg PO BID [facility] Last Admin: 06/22/18 08:37 Dose: 20 mg Insulin Human Lispro (Humalog) 0 units SC [facility]; Protocol Last Admin: 06/22/18 12:56 Dose: Not Given Losartan Potassium (Cozaar) 25 mg PO DAILY [facility] Last Admin: 06/22/18 08:38 Dose: 25 mg Metformin HCl (Glucophage) 1,000 mg PO BID [facility] Last Admin: 06/22/18 08:37 Dose: 1,000 mg Oxycodone/Acetaminophen (Percocet 5/325 Mg Tab) 1 tab PO Q6 PRN PRN Reason: Pain, moderate (4-7) Stop: 06/22/18 18:29 Pravastatin Sodium (Pravachol) 20 mg PO HS [facility] Last Admin: 06/21/18 21:09 Dose: 20 mg Sennosides (Senokot Tab) 8.6 mg PO DAILY [facility] Last Admin: 06/22/18 08:40 Dose: 8.6 mg - Labs Labs: 06/20/18 06:30 06/20/18 06:30 PT 12.5 Seconds (9.8-13.1) 06/20/18 06:30 INR 1.1 06/20/18 06:30 APTT 33.6 Seconds (25.6-37.1) 06/20/18 06:30 - Constitutional Appears: No Acute Distress - Head Exam Head Exam: NORMAL INSPECTION - Eye Exam Eye Exam: PERRL - ENT Exam ENT Exam: Normal Exam - Neck Exam Neck Exam: Normal Inspection - Respiratory Exam Respiratory Exam: Clear to Ausculation Bilateral - Cardiovascular Exam Cardiovascular Exam: REGULAR RHYTHM, Murmur (sm LSB) Additional comments: * Sternotomy incision healing well, minimal tendernss - GI/Abdominal Exam GI & Abdominal Exam: Soft, Normal Bowel Sounds - Extremities Exam Additional comments: RLL incision healing well - Back Exam Back Exam: NORMAL INSPECTION - Neurological Exam Neurological Exam: Alert, CN II-XII Intact, Oriented x3 Additional comments: no focal motor/sensory deficit, generalized weakness - Psychiatric Exam Psychiatric exam: Anxious - Skin Skin Exam: Warm Assessment and Plan (1) Weakness generalized Status: Acute (2) S/P CABG (coronary artery bypass graft) Status: Acute (3) DMII (diabetes mellitus, type 2) Status: Chronic (4) Hyperlipidemia Status: Chronic (5) Hypertension Status: Chronic - Assessment and Plan (Free Text) Plan: Continue Coreg, Coozar, Ecotrin, Plavix, PT and rest of Tx
--- NOTE | 2018-06-22 13:45 | CP.PCM.PN ---
Subjective - Date & Time of Evaluation Date of Evaluation: 06/22/18 Time of Evaluation: 10:45 - Subjective Subjective: F/U CABG Pt doing well with PT, no CP, no SOB. Objective - Vital Signs/Intake and Output Vital Signs (last 24 hours): Temp Pulse Resp BP Pulse Ox 98.4 F 81 20 149/76 95 06/22/18 10:00 06/22/18 10:00 06/22/18 10:00 06/22/18 10:00 06/22/18 10:00 - Medications Medications: Current Medications Acetaminophen (Tylenol 325mg Tab) 650 mg PO Q4 PRN PRN Reason: Pain, Mild (1-3) Aspirin (Ecotrin) 81 mg PO DAILY [facility] Last Admin: 06/22/18 08:38 Dose: 81 mg Carvedilol (Coreg) 6.25 mg PO Q12 [facility] Last Admin: 06/22/18 08:38 Dose: 6.25 mg Cholecalciferol (Vitamin D) 1,000 intlu PO DAILY [facility] Last Admin: 06/22/18 08:37 Dose: 1,000 intlu Clopidogrel Bisulfate (Plavix) 75 mg PO DAILY [facility] Last Admin: 06/22/18 08:37 Dose: 75 mg Docusate Sodium (Colace) 100 mg PO BID [facility] Last Admin: 06/22/18 08:36 Dose: 100 mg Famotidine (Pepcid) 20 mg PO BID [facility] Last Admin: 06/22/18 08:37 Dose: 20 mg Insulin Human Lispro (Humalog) 0 units SC [facility]; Protocol Last Admin: 06/22/18 12:56 Dose: Not Given Losartan Potassium (Cozaar) 25 mg PO DAILY [facility] Last Admin: 06/22/18 08:38 Dose: 25 mg Metformin HCl (Glucophage) 1,000 mg PO BID [facility] Last Admin: 06/22/18 08:37 Dose: 1,000 mg Oxycodone/Acetaminophen (Percocet 5/325 Mg Tab) 1 tab PO Q6 PRN PRN Reason: Pain, moderate (4-7) Stop: 06/22/18 18:29 Pravastatin Sodium (Pravachol) 20 mg PO HS [facility] Last Admin: 06/21/18 21:09 Dose: 20 mg Sennosides (Senokot Tab) 8.6 mg PO DAILY [facility] Last Admin: 06/22/18 08:40 Dose: 8.6 mg - Labs Labs: 06/20/18 06:30 06/20/18 06:30 PT 12.5 Seconds (9.8-13.1) 06/20/18 06:30 INR 1.1 06/20/18 06:30 APTT 33.6 Seconds (25.6-37.1) 06/20/18 06:30 - Constitutional Appears: No Acute Distress - Head Exam Head Exam: NORMAL INSPECTION - Eye Exam Additional comments: Cataract b/l - Neck Exam Neck Exam: Normal Inspection - Respiratory Exam Respiratory Exam: NORMAL BREATHING PATTERN - Cardiovascular Exam Cardiovascular Exam: REGULAR RHYTHM Additional comments: Chest incision healing well - GI/Abdominal Exam GI & Abdominal Exam: Soft, Normal Bowel Sounds - Extremities Exam Additional comments: RLL incision healing well - Back Exam Back Exam: NORMAL INSPECTION - Neurological Exam Neurological Exam: Alert, CN II-XII Intact, Oriented x3 - Psychiatric Exam Psychiatric exam: Normal Mood - Skin Skin Exam: Warm Assessment and Plan (1) S/P CABG (coronary artery bypass graft) Status: Acute (2) Acute weakness Status: Acute (3) DMII (diabetes mellitus, type 2) Status: Chronic (4) Hyperlipidemia Status: Chronic (5) Hypertension Status: Chronic - Assessment and Plan (Free Text) Plan: Continue Cozaar, Coreg, Plavix, Ecotrin and rest of Tx PT/OT.
[2018-06-22] MEDS: Pravastatin Sodium 20 MG TAB PO SCH (21:25)
[2018-06-22] MEDS: Oxycodone/Acetaminophen 5/325 mg Tab PO PRN (21:26)
[2018-06-23] MEDS: Insulin Lispro (humaLOG) 100 Units/ml Inj SC SCH ×4 (06:29→21:09)
[2018-06-23] MEDS: Cholecalciferol 1,000 INTLU TAB PO SCH (08:12)
--- NOTE | 2018-06-23 16:33 | CP.PCM.PN ---
Subjective - Date & Time of Evaluation Date of Evaluation: 06/23/18 Time of Evaluation: 15:00 - Subjective Subjective: F/U S/P CABG No A/D, no pain, no SOB, ambulating with a walker at times. Objective - Vital Signs/Intake and Output Vital Signs (last 24 hours): Temp Pulse Resp BP Pulse Ox 98.4 F 71 20 134/74 98 06/23/18 08:58 06/23/18 14:32 06/23/18 08:58 06/23/18 14:32 06/23/18 14:32 - Medications Medications: Current Medications Acetaminophen (Tylenol 325mg Tab) 650 mg PO Q4 PRN PRN Reason: Pain, Mild (1-3) Aspirin (Ecotrin) 81 mg PO DAILY [facility] Last Admin: 06/23/18 08:11 Dose: 81 mg Carvedilol (Coreg) 6.25 mg PO Q12 [facility] Last Admin: 06/23/18 08:10 Dose: 6.25 mg Cholecalciferol (Vitamin D) 1,000 intlu PO DAILY [facility] Last Admin: 06/23/18 08:12 Dose: 1,000 intlu Clopidogrel Bisulfate (Plavix) 75 mg PO DAILY [facility] Last Admin: 06/23/18 08:11 Dose: 75 mg Docusate Sodium (Colace) 100 mg PO BID [facility] Last Admin: 06/23/18 08:11 Dose: 100 mg Famotidine (Pepcid) 20 mg PO BID [facility] Last Admin: 06/23/18 08:11 Dose: 20 mg Insulin Human Lispro (Humalog) 0 units SC [facility]; Protocol Last Admin: 06/23/18 11:30 Dose: 1 u Losartan Potassium (Cozaar) 25 mg PO DAILY [facility] Last Admin: 06/23/18 08:10 Dose: 25 mg Metformin HCl (Glucophage) 1,000 mg PO BID [facility] Last Admin: 06/23/18 08:12 Dose: 1,000 mg Oxycodone/Acetaminophen (Percocet 5/325 Mg Tab) 1 tab PO Q6 PRN PRN Reason: Pain, moderate (4-7) Stop: 06/25/18 19:06 Last Admin: 06/22/18 21:26 Dose: 1 tab Pravastatin Sodium (Pravachol) 20 mg PO HS [facility] Last Admin: 06/22/18 21:25 Dose: 20 mg Sennosides (Senokot Tab) 8.6 mg PO DAILY [facility] Last Admin: 06/23/18 08:11 Dose: 8.6 mg - Labs Labs: 06/20/18 06:30 06/20/18 06:30 PT 12.5 Seconds (9.8-13.1) 06/20/18 06:30 INR 1.1 06/20/18 06:30 APTT 33.6 Seconds (25.6-37.1) 06/20/18 06:30 - Constitutional Appears: No Acute Distress - Head Exam Head Exam: NORMAL INSPECTION - Eye Exam Additional comments: Cataract b/l - ENT Exam ENT Exam: Normal Exam - Neck Exam Neck Exam: Normal Inspection - Respiratory Exam Respiratory Exam: NORMAL BREATHING PATTERN - Cardiovascular Exam Cardiovascular Exam: REGULAR RHYTHM Additional comments: Chest incision healing well - GI/Abdominal Exam GI & Abdominal Exam: Soft, Normal Bowel Sounds - Extremities Exam Additional comments: RLL and R groin incision dry healing well - Back Exam Back Exam: NORMAL INSPECTION - Neurological Exam Neurological Exam: Alert, CN II-XII Intact, Oriented x3 - Psychiatric Exam Psychiatric exam: Normal Mood - Skin Skin Exam: Warm Assessment and Plan (1) S/P CABG (coronary artery bypass graft) Status: Acute (2) Acute weakness Status: Acute (3) DMII (diabetes mellitus, type 2) Status: Chronic (4) Hyperlipidemia Status: Chronic (5) Hypertension Status: Chronic - Assessment and Plan (Free Text) Plan: Contiue ASA, Cozaar, Percocet q 6 prn, Colace, rest of Tx and PT/OT
[2018-06-23] MEDS: Oxycodone/Acetaminophen 5/325 mg Tab PO PRN (17:38)
[2018-06-23] MEDS: Pravastatin Sodium 20 MG TAB PO SCH (21:09)
[2018-06-24] MEDS: Oxycodone/Acetaminophen 5/325 mg Tab PO PRN ×2 (05:01→21:18)
[2018-06-24 07:43] LABS: HEMOGLOBIN 11.1 g/dL (12.0-16.0); MEAN CELL VOLUME 86.2 fl (81.0-99.0); MEAN CORPUSCULAR HEMOGLOBIN 28.5 pg (27.0-31.0); RBC 3.9 Mil/uL (3.80-5.20); RED CELL DISTRIBUTION WIDTH 14.7 % (11.5-14.5); WHITE BLOOD COUNT 8.6 K/uL (4.8-10.8)
[2018-06-24 08:20] LABS: BLOOD UREA NITROGEN 14 mg/dl (7-17); CALCIUM 9.5 mg/dL (8.4-10.2); GFR NON-AFRICAN AMERICAN > 60
[2018-06-24] MEDS: Insulin Lispro (humaLOG) 100 Units/ml Inj SC SCH ×4 (08:22→21:18)
[2018-06-24] MEDS: Cholecalciferol 1,000 INTLU TAB PO SCH (08:49)
[2018-06-24] MEDS ORDERED: Alum-Mag Hydrox-Simethicone Susp (30 mL) PO PRN (14:05)
--- NOTE | 2018-06-24 16:15 | CP.PCM.PN ---
Subjective - Date & Time of Evaluation Date of Evaluation: 06/24/18 Time of Evaluation: 11:40 - Subjective Subjective: no C/P, no SOB, lack of apetite Objective - Vital Signs/Intake and Output Vital Signs (last 24 hours): Temp Pulse Resp BP Pulse Ox 98.2 F 86 20 157/80 H 95 06/24/18 08:33 06/24/18 08:48 06/24/18 08:33 06/24/18 08:48 06/24/18 08:33 - Medications Medications: Current Medications Acetaminophen (Tylenol 325mg Tab) 650 mg PO Q4 PRN PRN Reason: Pain, Mild (1-3) Al Hydrox/Mg Hydrox/Simethicone (Maalox Plus 30 Ml) 30 ml PO Q6 PRN PRN Reason: Indigestion / Heartburn Aspirin (Ecotrin) 81 mg PO DAILY [facility] Last Admin: 06/24/18 08:48 Dose: 81 mg Carvedilol (Coreg) 6.25 mg PO Q12 [facility] Last Admin: 06/24/18 08:48 Dose: 6.25 mg Cholecalciferol (Vitamin D) 1,000 intlu PO DAILY [facility] Last Admin: 06/24/18 08:49 Dose: 1,000 intlu Clopidogrel Bisulfate (Plavix) 75 mg PO DAILY [facility] Last Admin: 06/24/18 08:48 Dose: 75 mg Docusate Sodium (Colace) 100 mg PO BID [facility] Last Admin: 06/24/18 08:47 Dose: Not Given Famotidine (Pepcid) 20 mg PO BID [facility] Last Admin: 06/24/18 08:48 Dose: 20 mg Insulin Human Lispro (Humalog) 0 units SC [facility]; Protocol Last Admin: 06/24/18 12:14 Dose: 1 u Losartan Potassium (Cozaar) 25 mg PO DAILY [facility] Last Admin: 06/24/18 08:48 Dose: 25 mg Metformin HCl (Glucophage) 1,000 mg PO BID [facility] Last Admin: 06/24/18 08:48 Dose: 1,000 mg Oxycodone/Acetaminophen (Percocet 5/325 Mg Tab) 1 tab PO Q6 PRN PRN Reason: Pain, moderate (4-7) Stop: 06/25/18 19:06 Last Admin: 06/24/18 05:01 Dose: 1 tab Pravastatin Sodium (Pravachol) 20 mg PO HS [facility] Last Admin: 06/23/18 21:09 Dose: 20 mg Sennosides (Senokot Tab) 8.6 mg PO HS [facility] - Labs Labs: 06/24/18 06:05 06/24/18 06:05 PT 12.5 Seconds (9.8-13.1) 06/20/18 06:30 INR 1.1 06/20/18 06:30 APTT 33.6 Seconds (25.6-37.1) 06/20/18 06:30 - Constitutional Appears: No Acute Distress - Head Exam Head Exam: NORMOCEPHALIC - Eye Exam Eye Exam: PERRL - ENT Exam ENT Exam: Normal Exam - Neck Exam Neck Exam: Normal Inspection - Respiratory Exam Respiratory Exam: Clear to Ausculation Bilateral - Cardiovascular Exam Cardiovascular Exam: REGULAR RHYTHM, Murmur (sm LSB) Additional comments: Sternotomy scar healing well, minimal tenderness to palpation - GI/Abdominal Exam GI & Abdominal Exam: Soft, Normal Bowel Sounds - Back Exam Back Exam: NORMAL INSPECTION - Neurological Exam Neurological Exam: Alert, CN II-XII Intact, Oriented x3 Additional comments: no focal motor/sensory deficit - Psychiatric Exam Psychiatric exam: Anxious - Skin Skin Exam: Warm Assessment and Plan (1) Weakness generalized Status: Acute (2) S/P CABG (coronary artery bypass graft) Status: Acute (3) DMII (diabetes mellitus, type 2) Status: Chronic (4) Hyperlipidemia Status: Chronic (5) Hypertension Status: Chronic - Assessment and Plan (Free Text) Plan: continue Coreg, Coozae, Ecotrin, Plavix, PT, f/u Dietary
[2018-06-24] MEDS: Pravastatin Sodium 20 MG TAB PO SCH (21:23)
[2018-06-25] MEDS: Insulin Lispro (humaLOG) 100 Units/ml Inj SC SCH ×4 (06:32→22:59)
[2018-06-25] MEDS: Cholecalciferol 1,000 INTLU TAB PO SCH (10:00)
--- NOTE | 2018-06-25 12:23 | CP.PCM.PN ---
Subjective - Date & Time of Evaluation Date of Evaluation: 06/25/18 Time of Evaluation: 12:21 - Subjective Subjective: Shahid Bell, PGY-1, Cardiology Progress Note for Dr. Celeste Patient seen and evaluated at bike side. Patient had no acute overnight events. Patient was biking for 7 minutes in no distress when evaluated. Objective - Vital Signs/Intake and Output Vital Signs (last 24 hours): Temp Pulse Resp BP Pulse Ox 98.8 F 84 20 117/71 98 06/25/18 08:13 06/25/18 09:30 06/25/18 08:13 06/25/18 08:13 06/25/18 09:30 - Medications Medications: Current Medications Acetaminophen (Tylenol 325mg Tab) 650 mg PO Q4 PRN PRN Reason: Pain, Mild (1-3) Al Hydrox/Mg Hydrox/Simethicone (Maalox Plus 30 Ml) 30 ml PO Q6 PRN PRN Reason: Indigestion / Heartburn Aspirin (Ecotrin) 81 mg PO DAILY [facility] Last Admin: 06/24/18 08:48 Dose: 81 mg Carvedilol (Coreg) 6.25 mg PO Q12 [facility] Last Admin: 06/24/18 21:19 Dose: 6.25 mg Cholecalciferol (Vitamin D) 1,000 intlu PO DAILY [facility] Last Admin: 06/24/18 08:49 Dose: 1,000 intlu Clopidogrel Bisulfate (Plavix) 75 mg PO DAILY [facility] Last Admin: 06/24/18 08:48 Dose: 75 mg Docusate Sodium (Colace) 100 mg PO BID [facility] Last Admin: 06/24/18 17:48 Dose: Not Given Famotidine (Pepcid) 20 mg PO BID [facility] Last Admin: 06/24/18 16:18 Dose: 20 mg Insulin Human Lispro (Humalog) 0 units SC [facility]; Protocol Last Admin: 06/25/18 06:32 Dose: Not Given Losartan Potassium (Cozaar) 25 mg PO DAILY [facility] Last Admin: 06/24/18 08:48 Dose: 25 mg Metformin HCl (Glucophage) 1,000 mg PO BID [facility] Last Admin: 06/24/18 17:49 Dose: 1,000 mg Oxycodone/Acetaminophen (Percocet 5/325 Mg Tab) 1 tab PO Q6 PRN PRN Reason: Pain, moderate (4-7) Stop: 06/25/18 19:06 Last Admin: 06/24/18 21:18 Dose: 1 tab Pravastatin Sodium (Pravachol) 20 mg PO HS [facility] Last Admin: 06/24/18 21:23 Dose: 20 mg Sennosides (Senokot Tab) 8.6 mg PO HS [facility] Last Admin: 06/24/18 21:17 Dose: 8.6 mg - Labs Labs: 06/24/18 06:05 06/24/18 06:05 PT 12.5 Seconds (9.8-13.1) 06/20/18 06:30 INR 1.1 06/20/18 06:30 APTT 33.6 Seconds (25.6-37.1) 06/20/18 06:30 - Constitutional Appears: Well, Non-toxic, No Acute Distress - Head Exam Head Exam: ATRAUMATIC, NORMAL INSPECTION, NORMOCEPHALIC - Eye Exam Eye Exam: EOMI, PERRL - ENT Exam ENT Exam: Mucous Membranes Moist - Respiratory Exam Respiratory Exam: Clear to Auscultation Bilateral, NORMAL BREATHING PATTERN. absent: Rales, Rhonchi, Wheezes - Cardiovascular Exam Cardiovascular Exam: REGULAR RHYTHM, RRR, +S1, +S2 - GI/Abdominal Exam GI & Abdominal Exam: Normal Bowel Sounds, Soft. absent: Tenderness - Extremities Exam Extremities exam: Positive for: full ROM, normal inspection. Negative for: pedal edema - Neurological Exam Neurological exam: Alert, CN II-XII Intact, Oriented x3 - Skin Skin Exam: Dry, Intact, Normal Color Assessment and Plan (1) Elevated brain natriuretic peptide (BNP) level Assessment & Plan: BNP elevated at 5810 Will obtain echocardiogram for further evaluation post CABG Status: Acute (2) S/P CABG (coronary artery bypass graft) Assessment & Plan: Patient is status post CABG Continue with aspirin, plavix, pravastatin, coreg, cozaar Status: Acute (3) DMII (diabetes mellitus, type 2) Assessment & Plan: HgbA1c: 6.1 Continue with metformin Status: Chronic (4) Hyperlipidemia Assessment & Plan: T Continue with pravastatin Status: Chronic (5) Hypertension Assessment & Plan: Patient has been normotensive. Continue with coreg, cozaar Status: Chronic
--- NOTE | 2018-06-25 14:44 | CP.PCM.PN ---
Subjective - Date & Time of Evaluation Date of Evaluation: 06/25/18 Time of Evaluation: 09:35 - Subjective Subjective: F/U: S/P CABG No SOB, no CP Objective - Vital Signs/Intake and Output Vital Signs (last 24 hours): Temp Pulse Resp BP Pulse Ox 98.8 F 79 20 117/71 98 06/25/18 08:13 06/25/18 10:00 06/25/18 08:13 06/25/18 10:00 06/25/18 09:30 - Medications Medications: Current Medications Acetaminophen (Tylenol 325mg Tab) 650 mg PO Q4 PRN PRN Reason: Pain, Mild (1-3) Al Hydrox/Mg Hydrox/Simethicone (Maalox Plus 30 Ml) 30 ml PO Q6 PRN PRN Reason: Indigestion / Heartburn Aspirin (Ecotrin) 81 mg PO DAILY [facility] Last Admin: 06/25/18 10:00 Dose: 81 mg Carvedilol (Coreg) 6.25 mg PO Q12 [facility] Last Admin: 06/25/18 10:00 Dose: 6.25 mg Cholecalciferol (Vitamin D) 1,000 intlu PO DAILY [facility] Last Admin: 06/25/18 10:00 Dose: 1,000 intlu Clopidogrel Bisulfate (Plavix) 75 mg PO DAILY [facility] Last Admin: 06/25/18 10:00 Dose: 75 mg Docusate Sodium (Colace) 100 mg PO BID [facility] Last Admin: 06/25/18 10:00 Dose: 100 mg Famotidine (Pepcid) 20 mg PO BID [facility] Last Admin: 06/25/18 10:00 Dose: 20 mg Insulin Human Lispro (Humalog) 0 units SC [facility]; Protocol Last Admin: 06/25/18 12:27 Dose: 2 u Losartan Potassium (Cozaar) 25 mg PO DAILY [facility] Last Admin: 06/25/18 10:00 Dose: 25 mg Metformin HCl (Glucophage) 1,000 mg PO BID [facility] Last Admin: 06/25/18 10:00 Dose: 1,000 mg Oxycodone/Acetaminophen (Percocet 5/325 Mg Tab) 1 tab PO Q6 PRN PRN Reason: Pain, moderate (4-7) Stop: 06/25/18 19:06 Last Admin: 06/24/18 21:18 Dose: 1 tab Oxycodone/Acetaminophen (Percocet 5/325 Mg Tab) 1 tab PO Q6 PRN PRN Reason: Pain, moderate (4-7) Stop: 06/28/18 13:11 Pravastatin Sodium (Pravachol) 20 mg PO [facility] Last Admin: 06/24/18 21:23 Dose: 20 mg Sennosides (Senokot Tab) 8.6 mg PO [facility] Last Admin: 06/24/18 21:17 Dose: 8.6 mg - Labs Labs: 06/24/18 06:05 06/24/18 06:05 PT 12.5 Seconds (9.8-13.1) 06/20/18 06:30 INR 1.1 06/20/18 06:30 APTT 33.6 Seconds (25.6-37.1) 06/20/18 06:30 - Constitutional Appears: No Acute Distress - Head Exam Head Exam: NORMAL INSPECTION - Eye Exam Eye Exam: PERRL - ENT Exam ENT Exam: Normal Exam - Neck Exam Neck Exam: Normal Inspection - Respiratory Exam Respiratory Exam: Clear to Ausculation Bilateral - Cardiovascular Exam Cardiovascular Exam: REGULAR RHYTHM, Murmur (sm LSB) Additional comments: Sternotomy scar healing well, minimal tenderness on palpation. - GI/Abdominal Exam GI & Abdominal Exam: Soft, Normal Bowel Sounds - Extremities Exam Extremities Exam: Normal Inspection - Back Exam Back Exam: NORMAL INSPECTION - Neurological Exam Neurological Exam: Alert, CN II-XII Intact, Oriented x3 Additional comments: No focal motor/sensory deficit - Psychiatric Exam Psychiatric exam: Anxious - Skin Skin Exam: Warm Assessment and Plan (1) Weakness generalized Status: Acute (2) S/P CABG (coronary artery bypass graft) Status: Acute (3) DMII (diabetes mellitus, type 2) Status: Chronic (4) Hyperlipidemia Status: Chronic (5) Hypertension Status: Chronic - Assessment and Plan (Free Text) Plan: Continue current Tx, monitor Platelet
[2018-06-25] MEDS: Pravastatin Sodium 20 MG TAB PO SCH (22:25)
[2018-06-26 06:21] LABS: HEMOGLOBIN 10.5 g/dL (12.0-16.0); MEAN CELL VOLUME 86.5 fl (81.0-99.0); MEAN CORPUSCULAR HEMOGLOBIN 28.5 pg (27.0-31.0); RBC 3.66 Mil/uL (3.80-5.20)
[2018-06-26] MEDS: Insulin Lispro (humaLOG) 100 Units/ml Inj SC SCH ×4 (06:42→21:12)
[2018-06-26] MEDS: Cholecalciferol 1,000 INTLU TAB PO SCH (08:03)
--- NOTE | 2018-06-26 13:22 | CP.PCM.PN ---
Subjective - Date & Time of Evaluation Date of Evaluation: 06/26/18 Time of Evaluation: 13:20 - Subjective Subjective: Shahid Bell, PGY-1, Cardiology Progress Note for Dr. Celeste Patient seen and evaluated at [facility]. Patient had no acute overnight events. Patient denies any symptoms at this time. Objective - Vital Signs/Intake and Output Vital Signs (last 24 hours): Temp Pulse Resp BP Pulse Ox 98.2 F 83 20 133/78 97 06/26/18 08:19 06/26/18 08:19 06/26/18 08:19 06/26/18 08:19 06/26/18 08:19 - Medications Medications: Current Medications Acetaminophen (Tylenol 325mg Tab) 650 mg PO Q4 PRN PRN Reason: Pain, Mild (1-3) Al Hydrox/Mg Hydrox/Simethicone (Maalox Plus 30 Ml) 30 ml PO Q6 PRN PRN Reason: Indigestion / Heartburn Aspirin (Ecotrin) 81 mg PO DAILY [facility] Last Admin: 06/26/18 08:04 Dose: 81 mg Carvedilol (Coreg) 6.25 mg PO Q12 [facility] Last Admin: 06/26/18 08:05 Dose: 6.25 mg Cholecalciferol (Vitamin D) 1,000 intlu PO DAILY [facility] Last Admin: 06/26/18 08:03 Dose: 1,000 intlu Clopidogrel Bisulfate (Plavix) 75 mg PO DAILY [facility] Last Admin: 06/26/18 08:03 Dose: 75 mg Docusate Sodium (Colace) 100 mg PO BID [facility] Last Admin: 06/26/18 08:03 Dose: Not Given Famotidine (Pepcid) 20 mg PO BID [facility] Last Admin: 06/26/18 08:03 Dose: 20 mg Insulin Human Lispro (Humalog) 0 units SC [facility]; Protocol Last Admin: 06/26/18 12:20 Dose: 2 u Losartan Potassium (Cozaar) 25 mg PO DAILY [facility] Last Admin: 06/26/18 08:02 Dose: 25 mg Metformin HCl (Glucophage) 1,000 mg PO BID [facility] Last Admin: 06/26/18 08:03 Dose: 1,000 mg Oxycodone/Acetaminophen (Percocet 5/325 Mg Tab) 1 tab PO Q6 PRN PRN Reason: Pain, moderate (4-7) Stop: 06/28/18 13:11 Pravastatin Sodium (Pravachol) 20 mg PO [facility] Last Admin: 06/25/18 22:25 Dose: 20 mg Sennosides (Senokot Tab) 8.6 mg PO [facility] Last Admin: 06/25/18 22:26 Dose: Not Given - Labs Labs: 06/26/18 06:12 06/24/18 06:05 PT 12.5 Seconds (9.8-13.1) 06/20/18 06:30 INR 1.1 06/20/18 06:30 APTT 33.6 Seconds (25.6-37.1) 06/20/18 06:30 - Constitutional Appears: Well, Non-toxic, No Acute Distress - Head Exam Head Exam: ATRAUMATIC, NORMAL INSPECTION, NORMOCEPHALIC - Eye Exam Eye Exam: EOMI, PERRL - ENT Exam ENT Exam: Mucous Membranes Moist - Respiratory Exam Respiratory Exam: Clear to Auscultation Bilateral, NORMAL BREATHING PATTERN. absent: Rales, Rhonchi, Wheezes - Cardiovascular Exam Cardiovascular Exam: REGULAR RHYTHM, RRR, +S1, +S2 - GI/Abdominal Exam GI & Abdominal Exam: Normal Bowel Sounds, Soft. absent: Tenderness - Extremities Exam Extremities exam: Positive for: full ROM, normal inspection. Negative for: pedal edema - Neurological Exam Neurological exam: Alert, CN II-XII Intact, Oriented x3 - Skin Skin Exam: Dry, Intact, Normal Color Assessment and Plan (1) Elevated brain natriuretic peptide (BNP) level Assessment & Plan: BNP elevated at 5810 Will follow up echocardiogram for further evaluation post CABG Status: Acute (2) S/P CABG (coronary artery bypass graft) Assessment & Plan: Patient is status post CABG Continue with aspirin, plavix, pravastatin, coreg, cozaar Status: Acute (3) DMII (diabetes mellitus, type 2) Assessment & Plan: HgbA1c: 6.1 Continue with metformin Status: Chronic (4) Hyperlipidemia Assessment & Plan: T Continue with pravastatin Status: Chronic (5) Hypertension Assessment & Plan: Patient has been normotensive. Continue with coreg, cozaar Status: Chronic
--- NOTE | 2018-06-26 15:46 | CP.PCM.PN ---
Subjective - Date & Time of Evaluation Date of Evaluation: 06/26/18 Time of Evaluation: 09:30 - Subjective Subjective: F/U CABG/ Generalized weakness. No SOB, no CALZADA, no CP. Objective - Vital Signs/Intake and Output Vital Signs (last 24 hours): Temp Pulse Resp BP Pulse Ox 98.2 F 75 20 133/78 100 06/26/18 08:19 06/26/18 15:08 06/26/18 08:19 06/26/18 08:19 06/26/18 15:08 - Medications Medications: Current Medications Acetaminophen (Tylenol 325mg Tab) 650 mg PO Q4 PRN PRN Reason: Pain, Mild (1-3) Al Hydrox/Mg Hydrox/Simethicone (Maalox Plus 30 Ml) 30 ml PO Q6 PRN PRN Reason: Indigestion / Heartburn Aspirin (Ecotrin) 81 mg PO DAILY [facility] Last Admin: 06/26/18 08:04 Dose: 81 mg Carvedilol (Coreg) 6.25 mg PO Q12 [facility] Last Admin: 06/26/18 08:05 Dose: 6.25 mg Cholecalciferol (Vitamin D) 1,000 intlu PO DAILY [facility] Last Admin: 06/26/18 08:03 Dose: 1,000 intlu Clopidogrel Bisulfate (Plavix) 75 mg PO DAILY [facility] Last Admin: 06/26/18 08:03 Dose: 75 mg Docusate Sodium (Colace) 100 mg PO BID [facility] Last Admin: 06/26/18 08:03 Dose: Not Given Famotidine (Pepcid) 20 mg PO BID [facility] Last Admin: 06/26/18 08:03 Dose: 20 mg Insulin Human Lispro (Humalog) 0 units SC [facility]; Protocol Last Admin: 06/26/18 12:20 Dose: 2 u Losartan Potassium (Cozaar) 25 mg PO DAILY [facility] Last Admin: 06/26/18 08:02 Dose: 25 mg Metformin HCl (Glucophage) 1,000 mg PO BID [facility] Last Admin: 06/26/18 08:03 Dose: 1,000 mg Oxycodone/Acetaminophen (Percocet 5/325 Mg Tab) 1 tab PO Q6 PRN PRN Reason: Pain, moderate (4-7) Stop: 06/28/18 13:11 Pravastatin Sodium (Pravachol) 20 mg PO HS [facility] Last Admin: 06/25/18 22:25 Dose: 20 mg Sennosides (Senokot Tab) 8.6 mg PO HS [facility] Last Admin: 06/25/18 22:26 Dose: Not Given - Labs Labs: 06/26/18 06:12 06/24/18 06:05 PT 12.5 Seconds (9.8-13.1) 06/20/18 06:30 INR 1.1 06/20/18 06:30 APTT 33.6 Seconds (25.6-37.1) 06/20/18 06:30 - Constitutional Appears: No Acute Distress - Head Exam Head Exam: NORMAL INSPECTION - Eye Exam Eye Exam: PERRL - ENT Exam ENT Exam: Normal Exam - Respiratory Exam Respiratory Exam: Clear to Ausculation Bilateral - Cardiovascular Exam Cardiovascular Exam: REGULAR RHYTHM, Murmur (sm LSB) Additional comments: Sternotomy scar healing well, minimal tenderness to palpation. - GI/Abdominal Exam GI & Abdominal Exam: Soft, Normal Bowel Sounds - Extremities Exam Extremities Exam: Normal Inspection - Back Exam Back Exam: NORMAL INSPECTION - Neurological Exam Neurological Exam: Alert, CN II-XII Intact, Oriented x3 Additional comments: No focal motor/sensory deficit - Psychiatric Exam Psychiatric exam: Anxious - Skin Skin Exam: Warm Assessment and Plan (1) Weakness generalized Status: Acute (2) S/P CABG (coronary artery bypass graft) Status: Acute (3) DMII (diabetes mellitus, type 2) Status: Chronic (4) Hyperlipidemia Status: Chronic (5) Hypertension Status: Chronic - Assessment and Plan (Free Text) Plan: Plt [phone], continue Plavix, Cozaar, Coreg, Pravachol, Percocet prn.
[2018-06-26] MEDS: Oxycodone/Acetaminophen 5/325 mg Tab PO PRN (21:17)
[2018-06-26] MEDS: Pravastatin Sodium 20 MG TAB PO SCH (21:18)
[2018-06-27] MEDS: Cholecalciferol 1,000 INTLU TAB PO SCH (08:09)
[2018-06-27] MEDS: Insulin Lispro (humaLOG) 100 Units/ml Inj SC SCH ×4 (08:10→21:47)
--- NOTE | 2018-06-27 13:23 | CP.PCM.PN ---
Subjective - Date & Time of Evaluation Date of Evaluation: 06/27/18 Time of Evaluation: 10:10 - Subjective Subjective: F/U Weakness/ s/p CABG No SOB, no CP, no CALZADA. Objective - Vital Signs/Intake and Output Vital Signs (last 24 hours): Temp Pulse Resp BP Pulse Ox 97.7 F 64 20 138/78 96 06/27/18 07:54 06/27/18 09:37 06/27/18 07:54 06/27/18 08:10 06/27/18 09:37 - Medications Medications: Current Medications Acetaminophen (Tylenol 325mg Tab) 650 mg PO Q4 PRN PRN Reason: Pain, Mild (1-3) Al Hydrox/Mg Hydrox/Simethicone (Maalox Plus 30 Ml) 30 ml PO Q6 PRN PRN Reason: Indigestion / Heartburn Alprazolam (Xanax) 0.25 mg PO BID PRN PRN Reason: Anxiety Stop: 07/04/18 12:08 Aspirin (Ecotrin) 81 mg PO DAILY [facility] Last Admin: 06/27/18 08:09 Dose: 81 mg Carvedilol (Coreg) 6.25 mg PO Q12 [facility] Last Admin: 06/27/18 08:10 Dose: 6.25 mg Cholecalciferol (Vitamin D) 1,000 intlu PO DAILY [facility] Last Admin: 06/27/18 08:09 Dose: 1,000 intlu Clopidogrel Bisulfate (Plavix) 75 mg PO DAILY [facility] Last Admin: 06/27/18 08:08 Dose: 75 mg Docusate Sodium (Colace) 100 mg PO BID [facility] Last Admin: 06/27/18 08:09 Dose: 100 mg Famotidine (Pepcid) 20 mg PO BID [facility] Last Admin: 06/27/18 08:08 Dose: 20 mg Insulin Human Lispro (Humalog) 0 units SC [facility]; Protocol Last Admin: 06/27/18 11:25 Dose: 2 u Losartan Potassium (Cozaar) 25 mg PO DAILY [facility] Last Admin: 06/27/18 08:09 Dose: 25 mg Metformin HCl (Glucophage) 1,000 mg PO BID [facility] Last Admin: 06/27/18 08:08 Dose: 1,000 mg Oxycodone/Acetaminophen (Percocet 5/325 Mg Tab) 1 tab PO Q6 PRN PRN Reason: Pain, moderate (4-7) Stop: 06/28/18 13:11 Last Admin: 06/26/18 21:17 Dose: 1 tab Pravastatin Sodium (Pravachol) 20 mg PO HS [facility] Last Admin: 06/26/18 21:18 Dose: 20 mg Sennosides (Senokot Tab) 8.6 mg PO HS [facility] Last Admin: 06/26/18 21:19 Dose: Not Given - Labs Labs: 06/26/18 06:12 06/24/18 06:05 PT 12.5 Seconds (9.8-13.1) 06/20/18 06:30 INR 1.1 06/20/18 06:30 APTT 33.6 Seconds (25.6-37.1) 06/20/18 06:30 - Constitutional Appears: No Acute Distress - Head Exam Head Exam: NORMAL INSPECTION - Eye Exam Eye Exam: PERRL - ENT Exam ENT Exam: Normal Exam - Neck Exam Neck Exam: Normal Inspection - Respiratory Exam Respiratory Exam: Clear to Ausculation Bilateral - Cardiovascular Exam Cardiovascular Exam: REGULAR RHYTHM, Murmur (sm LSB) Additional comments: Sternotomy scar healing well, minimal tenderness on palpation. - GI/Abdominal Exam GI & Abdominal Exam: Soft, Normal Bowel Sounds - Extremities Exam Extremities Exam: Normal Inspection - Back Exam Back Exam: NORMAL INSPECTION - Neurological Exam Neurological Exam: Alert, CN II-XII Intact, Oriented x3 Additional comments: No focal motor/sensory deficit. - Psychiatric Exam Psychiatric exam: Anxious - Skin Skin Exam: Warm Assessment and Plan (1) Weakness generalized Status: Acute (2) S/P CABG (coronary artery bypass graft) Status: Acute (3) DMII (diabetes mellitus, type 2) Status: Chronic (4) Hyperlipidemia Status: Chronic (5) Hypertension Status: Chronic - Assessment and Plan (Free Text) Plan: Continue Coreg, Cozaar, ASA, Plavix and rest of Tx. Discharge planning for AM.
--- NOTE | 2018-06-27 15:32 | CP.PCM.PN ---
Subjective - Date & Time of Evaluation Date of Evaluation: 06/27/18 Time of Evaluation: 15:31 - Subjective Subjective: Shahid Bell, PGY-1, Cardiology Progress Note for Dr. Celeste Patient seen and evaluated at [facility]. Patient had no acute overnight events. Patient denies any symptoms at this time. Objective - Vital Signs/Intake and Output Vital Signs (last 24 hours): Temp Pulse Resp BP Pulse Ox 97.7 F 64 20 138/78 96 06/27/18 07:54 06/27/18 09:37 06/27/18 07:54 06/27/18 08:10 06/27/18 09:37 - Medications Medications: Current Medications Acetaminophen (Tylenol 325mg Tab) 650 mg PO Q4 PRN PRN Reason: Pain, Mild (1-3) Al Hydrox/Mg Hydrox/Simethicone (Maalox Plus 30 Ml) 30 ml PO Q6 PRN PRN Reason: Indigestion / Heartburn Alprazolam (Xanax) 0.25 mg PO BID PRN PRN Reason: Anxiety Stop: 07/04/18 12:08 Aspirin (Ecotrin) 81 mg PO DAILY [facility] Last Admin: 06/27/18 08:09 Dose: 81 mg Carvedilol (Coreg) 6.25 mg PO Q12 [facility] Last Admin: 06/27/18 08:10 Dose: 6.25 mg Cholecalciferol (Vitamin D) 1,000 intlu PO DAILY [facility] Last Admin: 06/27/18 08:09 Dose: 1,000 intlu Clopidogrel Bisulfate (Plavix) 75 mg PO DAILY [facility] Last Admin: 06/27/18 08:08 Dose: 75 mg Docusate Sodium (Colace) 100 mg PO BID [facility] Last Admin: 06/27/18 08:09 Dose: 100 mg Famotidine (Pepcid) 20 mg PO BID [facility] Last Admin: 06/27/18 08:08 Dose: 20 mg Insulin Human Lispro (Humalog) 0 units SC [facility]; Protocol Last Admin: 06/27/18 11:25 Dose: 2 u Losartan Potassium (Cozaar) 25 mg PO DAILY [facility] Last Admin: 06/27/18 08:09 Dose: 25 mg Metformin HCl (Glucophage) 1,000 mg PO BID [facility] Last Admin: 06/27/18 08:08 Dose: 1,000 mg Oxycodone/Acetaminophen (Percocet 5/325 Mg Tab) 1 tab PO Q6 PRN PRN Reason: Pain, moderate (4-7) Stop: 06/28/18 13:11 Last Admin: 06/26/18 21:17 Dose: 1 tab Pravastatin Sodium (Pravachol) 20 mg PO HS [facility] Last Admin: 06/26/18 21:18 Dose: 20 mg Sennosides (Senokot Tab) 8.6 mg PO HS [facility] Last Admin: 06/26/18 21:19 Dose: Not Given - Labs Labs: 06/26/18 06:12 06/24/18 06:05 PT 12.5 Seconds (9.8-13.1) 06/20/18 06:30 INR 1.1 06/20/18 06:30 APTT 33.6 Seconds (25.6-37.1) 06/20/18 06:30 - Constitutional Appears: Well, Non-toxic, No Acute Distress - Head Exam Head Exam: ATRAUMATIC, NORMAL INSPECTION, NORMOCEPHALIC - Eye Exam Eye Exam: EOMI, PERRL - ENT Exam ENT Exam: Mucous Membranes Moist - Respiratory Exam Respiratory Exam: Clear to Auscultation Bilateral, NORMAL BREATHING PATTERN. absent: Rales, Rhonchi, Wheezes - Cardiovascular Exam Cardiovascular Exam: REGULAR RHYTHM, RRR, +S1, +S2 - GI/Abdominal Exam GI & Abdominal Exam: Normal Bowel Sounds, Soft. absent: Tenderness - Extremities Exam Extremities exam: Positive for: full ROM, normal inspection. Negative for: pedal edema - Neurological Exam Neurological exam: Alert, CN II-XII Intact, Oriented x3 - Skin Skin Exam: Dry, Intact, Normal Color Assessment and Plan (1) Elevated brain natriuretic peptide (BNP) level Assessment & Plan: BNP elevated at 5810 Echocardiogram shows improved LVEF Status: Acute (2) S/P CABG (coronary artery bypass graft) Assessment & Plan: Patient is status post CABG Continue with aspirin, plavix, pravastatin, coreg, cozaar Status: Acute (3) DMII (diabetes mellitus, type 2) Assessment & Plan: HgbA1c: 6.1 Continue with metformin Status: Chronic (4) Hyperlipidemia Assessment & Plan: T Continue with pravastatin Status: Chronic (5) Hypertension Assessment & Plan: Patient has been normotensive. Continue with coreg, cozaar Status: Chronic
[2018-06-27] MEDS: Oxycodone/Acetaminophen 5/325 mg Tab PO PRN (20:57)
[2018-06-27] MEDS: Pravastatin Sodium 20 MG TAB PO SCH (21:01)
[2018-06-28] MEDS: Insulin Lispro (humaLOG) 100 Units/ml Inj SC SCH ×3 (06:42→16:11)
[2018-06-28] MEDS: Cholecalciferol 1,000 INTLU TAB PO SCH (08:21)
--- NOTE | 2018-06-28 14:25 | CP.PCM.PN ---
Subjective - Date & Time of Evaluation Date of Evaluation: 06/28/18 Time of Evaluation: 14:23 - Subjective Subjective: Shahid Bell, PGY-1, Cardiology Progress Note for Dr. Celeste Patient seen and evaluated at [facility]. Patient had no acute overnight events. Patient denies any symptoms at this time. Objective - Vital Signs/Intake and Output Vital Signs (last 24 hours): Temp Pulse Resp BP Pulse Ox 98.2 F 76 20 147/86 97 06/28/18 08:43 06/28/18 08:43 06/28/18 08:43 06/28/18 08:43 06/28/18 08:43 - Medications Medications: Current Medications Acetaminophen (Tylenol 325mg Tab) 650 mg PO Q4 PRN PRN Reason: Pain, Mild (1-3) Al Hydrox/Mg Hydrox/Simethicone (Maalox Plus 30 Ml) 30 ml PO Q6 PRN PRN Reason: Indigestion / Heartburn Alprazolam (Xanax) 0.25 mg PO BID PRN PRN Reason: Anxiety Stop: 07/04/18 12:08 Aspirin (Ecotrin) 81 mg PO DAILY [facility] Last Admin: 06/28/18 08:23 Dose: 81 mg Carvedilol (Coreg) 6.25 mg PO Q12 [facility] Last Admin: 06/28/18 08:19 Dose: 6.25 mg Cholecalciferol (Vitamin D) 1,000 intlu PO DAILY [facility] Last Admin: 06/28/18 08:21 Dose: 1,000 intlu Clopidogrel Bisulfate (Plavix) 75 mg PO DAILY [facility] Last Admin: 06/28/18 08:20 Dose: 75 mg Docusate Sodium (Colace) 100 mg PO BID [facility] Last Admin: 06/28/18 08:19 Dose: 100 mg Famotidine (Pepcid) 20 mg PO BID [facility] Last Admin: 06/28/18 08:19 Dose: 20 mg Insulin Human Lispro (Humalog) 0 units SC [facility]; Protocol Last Admin: 06/28/18 11:45 Dose: 1 u Losartan Potassium (Cozaar) 25 mg PO DAILY [facility] Last Admin: 06/28/18 08:20 Dose: 25 mg Metformin HCl (Glucophage) 1,000 mg PO BID [facility] Last Admin: 06/28/18 08:20 Dose: 1,000 mg Pravastatin Sodium (Pravachol) 20 mg PO [facility] Last Admin: 06/27/18 21:01 Dose: 20 mg Sennosides (Senokot Tab) 8.6 mg PO [facility] Last Admin: 06/27/18 21:02 Dose: Not Given - Labs Labs: 06/26/18 06:12 06/24/18 06:05 PT 12.5 Seconds (9.8-13.1) 06/20/18 06:30 INR 1.1 06/20/18 06:30 APTT 33.6 Seconds (25.6-37.1) 06/20/18 06:30 - Constitutional Appears: Well, Non-toxic, No Acute Distress - Head Exam Head Exam: ATRAUMATIC, NORMAL INSPECTION, NORMOCEPHALIC - Eye Exam Eye Exam: EOMI, PERRL - ENT Exam ENT Exam: Mucous Membranes Moist - Respiratory Exam Respiratory Exam: Clear to Auscultation Bilateral, NORMAL BREATHING PATTERN. absent: Rales, Rhonchi, Wheezes - Cardiovascular Exam Cardiovascular Exam: REGULAR RHYTHM, RRR, +S1, +S2 - GI/Abdominal Exam GI & Abdominal Exam: Normal Bowel Sounds, Soft. absent: Tenderness - Extremities Exam Extremities exam: Positive for: full ROM, normal inspection. Negative for: pedal edema - Neurological Exam Neurological exam: Alert, CN II-XII Intact, Oriented x3 - Skin Skin Exam: Dry, Intact, Normal Color Assessment and Plan (1) Elevated brain natriuretic peptide (BNP) level Assessment & Plan: BNP elevated at 5810 Echocardiogram shows improved LVEF Status: Acute (2) S/P CABG (coronary artery bypass graft) Assessment & Plan: Patient is status post CABG Continue with aspirin, plavix, pravastatin, coreg, cozaar Patient should follow up with Dr. Damon and Dr. Celeste outpatient. Status: Acute (3) DMII (diabetes mellitus, type 2) Assessment & Plan: HgbA1c: 6.1 Continue with metformin Status: Chronic (4) Hyperlipidemia Assessment & Plan: T Continue with pravastatin Status: Chronic (5) Hypertension Assessment & Plan: Patient has been normotensive. Continue with coreg, cozaar Status: Chronic
--- NOTE | 2018-06-28 14:33 | CP.PCM.PN ---
Objective - Vital Signs/Intake and Output Vital Signs (last 24 hours): Temp Pulse Resp BP Pulse Ox 98.2 F 76 20 147/86 97 06/28/18 08:43 06/28/18 08:43 06/28/18 08:43 06/28/18 08:43 06/28/18 08:43 - Medications Medications: Current Medications Acetaminophen (Tylenol 325mg Tab) 650 mg PO Q4 PRN PRN Reason: Pain, Mild (1-3) Al Hydrox/Mg Hydrox/Simethicone (Maalox Plus 30 Ml) 30 ml PO Q6 PRN PRN Reason: Indigestion / Heartburn Alprazolam (Xanax) 0.25 mg PO BID PRN PRN Reason: Anxiety Stop: 07/04/18 12:08 Aspirin (Ecotrin) 81 mg PO DAILY [facility] Last Admin: 06/28/18 08:23 Dose: 81 mg Carvedilol (Coreg) 6.25 mg PO Q12 [facility] Last Admin: 06/28/18 08:19 Dose: 6.25 mg Cholecalciferol (Vitamin D) 1,000 intlu PO DAILY [facility] Last Admin: 06/28/18 08:21 Dose: 1,000 intlu Clopidogrel Bisulfate (Plavix) 75 mg PO DAILY [facility] Last Admin: 06/28/18 08:20 Dose: 75 mg Docusate Sodium (Colace) 100 mg PO BID [facility] Last Admin: 06/28/18 08:19 Dose: 100 mg Famotidine (Pepcid) 20 mg PO BID [facility] Last Admin: 06/28/18 08:19 Dose: 20 mg Insulin Human Lispro (Humalog) 0 units SC [facility]; Protocol Last Admin: 06/28/18 11:45 Dose: 1 u Losartan Potassium (Cozaar) 25 mg PO DAILY [facility] Last Admin: 06/28/18 08:20 Dose: 25 mg Metformin HCl (Glucophage) 1,000 mg PO BID [facility] Last Admin: 06/28/18 08:20 Dose: 1,000 mg Pravastatin Sodium (Pravachol) 20 mg PO [facility] Last Admin: 06/27/18 21:01 Dose: 20 mg Sennosides (Senokot Tab) 8.6 mg PO HS [facility] Last Admin: 06/27/18 21:02 Dose: Not Given - Labs Labs: 06/26/18 06:12 06/24/18 06:05 PT 12.5 Seconds (9.8-13.1) 06/20/18 06:30 INR 1.1 06/20/18 06:30 APTT 33.6 Seconds (25.6-37.1) 06/20/18 06:30 Assessment and Plan (1) Weakness generalized Status: Acute (2) S/P CABG (coronary artery bypass graft) Status: Acute (3) DMII (diabetes mellitus, type 2) Status: Chronic (4) Hyperlipidemia Status: Chronic (5) Hypertension Status: Chronic
[2018-06-28 17:06] VITALS: BP 131/77; PULSE 73; TEMP 98.3; O2SAT 96
--- NOTE | 2018-06-28 18:47 | CP.PCM.DIS ---
Provider - Provider Date of Admission: 06/19/18 16:00 Attending physician: Karsten Minor MD Consults: 06/19/18 16:01 Case Management Referral Routine Comment: Physician Instructions: Reason For Exam: Reason for Referral: Discharge Planning 06/19/18 18:36 Wound Care [Nursing Referral for Wound Care] Routine Comment: Physician Instructions: Reason For Exam: s/p CABG with chest incision line 06/19/18 18:37 Cardiology Consult Routine Comment: Consulting Provider: Adria Celeste Consulting Physician: Adria Celeste Reason for Consult: s/p CABG Diagnosis - Discharge Diagnosis (1) Weakness generalized Status: Acute (2) S/P CABG (coronary artery bypass graft) Status: Acute Priority: High (3) DMII (diabetes mellitus, type 2) Status: Chronic Priority: Medium (4) Hyperlipidemia Status: Chronic Priority: Medium (5) Hypertension Status: Chronic Priority: Medium Hospital Course - Lab Results Lab Results: Most Recent Lab Values WBC 8.0 K/uL (4.8-10.8) 06/26/18 06:12 RBC 3.66 Mil/uL (3.80-5.20) L 06/26/18 06:12 Hgb 10.5 g/dL (12.0-16.0) L 06/26/18 06:12 Hct 31.7 % (34.0-47.0) L 06/26/18 06:12 MCV 86.5 fl (81.0-99.0) 06/26/18 06:12 MCH 28.5 pg (27.0-31.0) 06/26/18 06:12 MCHC 33.0 g/dL (33.0-37.0) 06/26/18 06:12 RDW 15.0 % (11.5-14.5) H 06/26/18 06:12 Plt Count 493 K/uL (130-400) H D 06/26/18 06:12 PT 12.5 Seconds (9.8-13.1) 06/20/18 06:30 INR 1.1 06/20/18 06:30 APTT 33.6 Seconds (25.6-37.1) 06/20/18 06:30 Sodium 139 mmol/l (132-148) 06/24/18 06:05 Potassium 4.6 MMOL/L (3.6-5.0) 06/24/18 06:05 Chloride 104 mmol/L (98-107) 06/24/18 06:05 Carbon Dioxide 29 mmol/L (22-30) 06/24/18 06:05 Anion Gap 11 (10-20) 06/24/18 06:05 BUN 14 mg/dl (7-17) 06/24/18 06:05 Creatinine 0.9 mg/dl (0.7-1.2) 06/24/18 06:05 Est GFR ( Amer) > 60 06/24/18 06:05 Est GFR (Non-Af Amer) > 60 06/24/18 06:05 POC Glucose (mg/dL) 136 mg/dL (65-110) H 06/28/18 05:51 Random Glucose 140 mg/dL (65-105) H 06/24/18 06:05 Hemoglobin A1c 6.1 % (4.2-6.5) 06/20/18 06:30 Calcium 9.5 mg/dL (8.4-10.2) 06/24/18 06:05 Total Bilirubin 0.6 mg/dl (0.2-1.3) 06/20/18 06:30 AST 44 U/L (14-36) H 06/20/18 06:30 ALT 28 U/L (9-52) 06/20/18 06:30 Alkaline Phosphatase 80 U/L (38-126) 06/20/18 06:30 NT-Pro-B Natriuret Pep 5810 pg/ml (0-900) H 06/20/18 16:38 Total Protein 6.0 G/DL (6.3-8.2) L 06/20/18 06:30 Albumin 3.0 g/dL (3.5-5.0) L D 06/20/18 06:30 Globulin 2.9 gm/dL (2.2-3.9) 06/20/18 06:30 Albumin/Globulin Ratio 1.0 (1.0-2.1) 06/20/18 06:30 Triglycerides 218 mg/DL (0-149) H D 06/20/18 06:30 Cholesterol 116 mg/dL (0-199) 06/20/18 06:30 LDL Cholesterol Direct 64 mg/dL (0-129) 06/20/18 06:30 HDL Cholesterol 20 MG/DL (30-70) L 06/20/18 06:30 Thyroxine (T4) 9.12 ug/dl (5.5-11.0) 06/20/18 06:30 TSH 3rd Generation 1.57 mIU/ML (0.46-4.68) 06/20/18 06:30 Urine Color Yellow (YELLOW) 06/20/18 16:45 Urine Clarity Slighty-cloudy (Clear) 06/20/18 16:45 Urine pH 8.0 (5.0-8.0) 06/20/18 16:45 Ur Specific Vermilion 1.013 (1.003-1.030) 06/20/18 16:45 Urine Protein Negative mg/dL (NEGATIVE) 06/20/18 16:45 Urine Glucose (UA) Neg mg/dL (NEGATIVE) 06/20/18 16:45 Urine Ketones Trace mg/dL (NEGATIVE) 06/20/18 16:45 Urine Blood Negative (NEGATIVE) 06/20/18 16:45 Urine Nitrate Negative (NEGATIVE) 06/20/18 16:45 Urine Bilirubin Negative (NEGATIVE) 06/20/18 16:45 Urine Urobilinogen 2.0 mg/dL (0.2-1.0) H 06/20/18 16:45 Ur Leukocyte Esterase Neg Leyla/uL (Negative) 06/20/18 16:45 Urine RBC (Auto) < 1 /hpf (0-3) 06/20/18 16:45 Urine Microscopic WBC 2 /hpf (0-5) 06/20/18 16:45 Ur Squamous Epith Cells 8 /hpf (0-5) H 06/20/18 16:45 Discharge Exam - Head Exam Head Exam: NORMAL INSPECTION Discharge Plan - Follow Up Plan Condition: GOOD Disposition: HOME/ ROUTINE Instructions: Type 2 Diabetes, Recovery After Coronary Artery Bypass Graft Surgery (CABG), Generalized Weakness (DC) Referrals: Otis Damon MD [Medical Doctor] - Adria Celeste MD [Staff Provider] - Karsten Minor MD [Staff Provider] -
== END 2018-06-28 17:15 | disposition home or self-care (01) | DRG 949 ==
LOC: H.TCU 16:00
PROVIDERS: ADMIT Internal Medicine Pulmonary Disease; ATTEND Internal Medicine Pulmonary Disease
PROC: F07Z9FZ Gait Training/Functional Ambulation Treatment using Assistive, Adaptive, Supportive or Protective Equipment (ICD-10-PCS; principal; 2018-06-19)
PROC: F07L6GZ Therapeutic Exercise Treatment of Musculoskeletal System - Lower Back / Lower Extremity using Aerobic Endurance and Conditioning Equipment (ICD-10-PCS; 2018-06-19)
PROC: F08Z1FZ Dressing Techniques Treatment using Assistive, Adaptive, Supportive or Protective Equipment (ICD-10-PCS; 2018-06-19)
DX: Z48.812 Encounter for surgical aftercare following surgery on the circulatory system (principal); I21.3 ST elevation (STEMI) myocardial infarction of unspecified site; I25.10 Atherosclerotic heart disease of native coronary artery without angina pectoris; I10 Essential (primary) hypertension; E78.5 Hyperlipidemia, unspecified; E11.9 Type 2 diabetes mellitus without complications; Z87.891 Personal history of nicotine dependence; E78.00 Pure hypercholesterolemia, unspecified; R53.1 Weakness; Z98.61 Coronary angioplasty status; H26.9 Unspecified cataract; R79.89 Other specified abnormal findings of blood chemistry